=== PATIENT | male | born 1955 | race African-American/Black ===

== ENCOUNTER → 2016-09-03 | Day surgery (SDC) | payer OTHER ==
[~2016-09-03] VITALS: Ht 180.3 cm; Wt 83.8 kg
[~2016-09-03] MED LIST: BACITRACIN TOP OINT 15 GM TUBE ONE; CHLORHEXIDINE GLUCONATE 2 % 1 PACK (2 CLOTHS) TOPICAL PRN; DO NOT ADM ANY ANTICOAGULANT DRUGS PRN; FAMOTIDINE 20 MG/2 ML VIAL ONE; HYDROmorphone HCL PF 1 MG/ML VIAL IV PRN; INSULIN HUMAN REGULAR 1,000 UNITS/10 ML VIAL SQ PRN; LACTATED RINGER'S 1000 ML INJ 500 ML IV ONE; LACTATED RINGER'S 1000 ML IV PRN; LIDOCAINE HCL 2% 50 ML VIAL INFIL ONE; METOPROLOL TARTRATE 25 MG TAB PO PRN; MIDAZOLAM HCL 2 MG/2 ML VIAL ONE; ONDANSETRON HCL 4 MG/2 ML VIAL IV PUSH ONE; ONDANSETRON HCL 4 MG/2 ML VIAL IV PUSH PRN; POVIDONE IODINE 5% (ANTISEPSIS KIT) 4 APPLICATIONS EACH NARE PRN; PROPOFOL 200 MG/20 ML AMP IV ONE; SODIUM CHLORID 0.9% 500 ML IV PRN; TRIAMCINOLONE ACETONIDE 40 MG/ML VIAL I-ARTICULR ONE; TRIAMCINOLONE ACETONIDE 40 MG/ML VIAL ONE; ceFAZolin 2 GM PREMIX 50 ML IV SCH
[2016-09-03 07:08] VITALS: BP 154/84; PULSE 68; RESP 16; TEMP 98; O2SAT 99
[2016-09-03 10:31] VITALS: BP 160/97; PULSE 62; TEMP 96.3; O2SAT 99
[2016-09-03 10:34] VITALS: RESP 18
--- NOTE | 2016-09-03 13:36 | EKG ---
Date Performed: 09/03/2016 Time Performed: 07:33:29 PTAGE: 61 years EKG: SINUS BRADYCARDIA BORDERLINE ECG Compared to prior tracing no significant change PREVIOUS TRACING : 10/05/2012 22.58 DOCTOR: Eugenio Delacruz Interpretating Date/Time 09/03/2016 13:32:18
--- NOTE | 2016-09-03 20:33 | MP ---
cc: RAYMUNDO RAZA DATE OF SURGERY 09/03/2016 PREOPERATIVE DIAGNOSIS 1. Right carpal tunnel syndrome. 2. Arthritis right wrist POSTOPERATIVE DIAGNOSIS 1. Right carpal tunnel syndrome. 2. Arthritis right wrist PROCEDURE 1. Right open carpal tunnel release. 2. Corticosteroid injection, right wrist. SURGEON Dr. Jesica Raza ANESTHESIA General and local TOURNIQUET TIME 14 minutes at 250 mmHg INDICATIONS FOR PROCEDURE Josh Saleh is a pleasant 61-year-old left-hand dominant male who works in [employer] at [employer]. He reported worsening paresthesias in the median nerve distribution which was confirmed on EMG nerve conduction study to be consistent with carpal tunnel syndrome as well as cubital tunnel syndrome. The patient declined surgical intervention for the cubital tunnel and wishes to proceed with right carpal tunnel release. X-rays confirmed scapholunate widening with arthritis between the scaphoid and radius. He elected to proceed with corticosteroid injection and did not want to proceed with surgical intervention for the arthritis at this time. Risks were explained but not limited to wound complications, infection, persistent paresthesias, persistent pain, need for additional surgeries and he elected to proceed. DESCRIPTION OF PROCEDURE The patient was identified in the preoperative holding area and the correct extremity was marked. The patient was taken to the operating room where anesthesia was induced. Right upper extremities was prepped, draped in normal sterile fashion. Tourniquet was inflated to 250 mmHg for 14 minutes. A longitudinal incision was made in line with the radial border of the ring finger. Palmar fascia was identified, incised. Transverse carpal ligament was identified and incised. There was a very significant compression distally on the median nerve. Care was taken to protect the median nerve, palmar arch, ulnar nerve and ulnar artery. Tourniquet was released. Hemostasis was obtained. 5 mL of 2% lidocaine without epinephrine was used to perform local anesthesia over the carpal tunnel and a mixture of 1 mL of 2% lidocaine without epinephrine and 1 mL of Kenalog was injected into the 3-4 portal on the right wrist without complication. The patient was placed into a soft dressing and awaken from anesthesia without any complications. I will see him in 2 weeks for suture removal. He was given a prescription for antibiotics and pain medication. He should be off work until that time. MD DONNA Butterfield/ /9:12 AM /8:29 PM MTDVeronika
== END | disposition home or self-care (01) ==
LOC: HSDC 06:10
PROVIDERS: ATTEND Orthopaedic Surgery
DX: G56.01 Carpal tunnel syndrome, right upper limb (principal); M19.031 Primary osteoarthritis, right wrist; Z01.810 Encounter for preprocedural cardiovascular examination; G56.21 Lesion of ulnar nerve, right upper limb
CPT/HCPCS: 01810; 20605; 64721; 93005; J0690; J2250; J2405; J3301; J7120

== ENCOUNTER 2016-09-20 18:49 | Emergency (ER) | payer OTHER ==
[~2016-09-20] VITALS: Ht 180.3 cm; Wt 86.7 kg
[2016-09-20 19:15] VITALS: BP 161/94; PULSE 73; RESP 16; TEMP 98.1; O2SAT 98
--- NOTE | 2016-09-20 20:54 | PD ---
HPI Chief Complaint: Eye Problems/Injury Time Seen by Provider: 20:47 Travel History International Travel<30 days: No Contact w/Intl Traveler<30days: No Traveled to known affect area: No History of Present Illness HPI 61-year-old male presents to the emergency department by private transportation for complaint of intermittent floaters that have worsened over the past 3 days. Patient states intermittently he'll notice a silvery type change in his vision that floats across his visual field to the midline. Patient is unable to determine if it is coming from the right eye or the left eye. Patient is not experiencing any loss of vision or eye shade coming down over his eyes to obscure his vision or any tunnel vision. Patient also denies any double vision. Patient has not had any sudden onset worst ever headache. Patient did have a mild headache approximately 4 days ago that resolved with one dose of [id number] headache medication. Patient has had no confusion no loss of vision no change in speech no facial droop no neck pain no chest pain no palpitations no sweats no shortness of breath no nausea no vomiting no referred neck jaw back shoulder arm pain no upper extremity or lower extremity numbness tingling or weakness no ataxia of gait also denies any injury or fall. Patient has had no eye pain no drainage from his eyes no injection no swelling. Patient 's had no fever or chills. 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 Patient denies any chronic medical conditions such as autoimmune disorder, hypertension , dyslipidemia, tobaccoism, TIA, CVA, or seizure. Patient takes no medications on a daily basis. Patient denies any eye pain. Patient denies any eye injury. Patient reports similar however briefer duration of symptoms approximately six months ago. [facility] Past Medical History Narrative Medical Negative past medical history; tonsillectomy, carpal tunnel repair; no tobacco use or alcohol use; nursing notes reviewed Medical History: Denies Significant Hx Cancer: No Cardiovascular Problems: No Diminished Hearing: No Endocrine: No Genitourinary: No Hepatitis: No Hiatal Hernia: No Immune Disorder: No Musculoskeletal: No (RIGHT WRIST, DDD LUMBAR) Neurologic: No Psychiatric: No Reproductive: No Respiratory: No Immunizations Current: Yes Tetanus Vaccination: < 5 Years Influenza Vaccination: Yes ?: Not Past Surgical History Abdominal Surgery: No AICD: No Body Medical Devices: NONE Cardiac Surgery: No Ear Surgery: No Endocrine Surgery: No Eye Surgery: No Genitourinary Surgery: No Joint Replacement: No Neurologic Surgery: No Oral Surgery: Yes (TONSILLECTOMY) Pacemaker: No Thoracic Surgery: No Tonsillectomy: Yes Other Surgery: Yes (right hand carpal tunnel surgery) Social History Alcohol Use: No Tobacco Use: No Substance Use: No Allergies-Medications (Allergen,Severity, Reaction): Coded Allergies: Latex (Verified Allergy, Severe, Hives, 09/20/16) Uncoded Allergies: POWDERED LATEX GLOVES (Allergy, Mild, 05/28/07) Reported Meds & Prescriptions Reported Meds & Active Scripts Active Norvasc (Amlodipine Besylate) 2.5 Mg Tab 2.5 Mg PO DAILY Review of Systems Except as stated in HPI: all other systems reviewed are Neg General / Constitutional: No: Fever, Chills Eyes: Positive: Other (floaters), No: Diploplia, Blurred Vision, Photophobia, Drainage, Redness, Foreign Body Sensation HENT: Positive: Headaches (moderate times one), No: Vertigo, Lightheadedness, Nosebleed, Neck Stiffness, Neck Pain, Earache Cardiovascular: No: Chest Pain or Discomfort, Palpitations, Diaphoresis, Syncope, Claudication Respiratory: No: Shortness of Breath Gastrointestinal: No: Nausea, Vomiting Genitourinary: No: Dysuria, Flank Pain Musculoskeletal: No: Myalgias, Arthralgias Skin: No Rash Neurologic: Positive: Headache (times one), No: Weakness, Dizziness, Syncope, Focal Abnormalities, Coordination Problem, Ataxia, Change in Mentation, Slurred Speech, Paresthesia, Incontinence, Seizures, Sensory Disturbance Psychiatric: No: Anxiety Endocrine: No: Heat Intolerance Hematologic/Lymphatic: No: Easy Bruising Physical Exam Narrative GENERAL: Well-developed well-nourished male in no acute distress no respiratory distress; GCS 15. SKIN: Warm and dry. HEAD: Atraumatic. Normocephalic. EYES: Pupils equal and round. EOMI. No scleral icterus. No injection or drainage. No fluorescein uptake; no dendrites. No gross Hyphema. No papilledema on funduscopic exam. No obvious retinal detachment on slit lamp exam. ENT: No nasal bleeding or discharge. Mucous membranes pink and moist. NECK: Trachea midline. No JVD. CARDIOVASCULAR: Regular rate and rhythm. RESPIRATORY: No accessory muscle use. Clear to auscultation. Breath sounds equal bilaterally. GASTROINTESTINAL: Abdomen soft, non-tender, nondistended. Hepatic and splenic margins not palpable. MUSCULOSKELETAL: Extremities without clubbing, cyanosis, or edema. No obvious deformities. NEUROLOGICAL: Awake and alert. No obvious cranial nerve deficits. No visual field loss. Motor grossly within normal limits. Five out of 5 muscle strength in the arms and legs. No pronator drift. No limb ataxia. Sensory exam intact. Normal speech. PSYCHIATRIC: Appropriate mood and affect; insight and judgment normal. Data Data Last Documented VS Vital Signs Date Time Temp Pulse Resp B/P Pulse Ox O2 Delivery O2 Flow Rate FiO2 09/20/16 22:01 70 18 98 09/20/16 21:28 160/91 Room Air 09/20/16 19:[address] Brain W/O Iv Contrast(Rout) (09/20/16 ) [facility] Medical Decision Making Medical Screen Exam Complete: Yes Emergency Medical Condition: Yes Medical Record Reviewed: Yes Interpretation(s) Vital Signs Date Time Temp Pulse Resp B/P Pulse Ox O2 Delivery O2 Flow Rate FiO2 09/20/16 21:28 65 18 160/91 99 Room Air 09/20/16 19:15 98.1 73 16 161/[address] 09/20/16 0000 Signed Impressions: Service Date/Time: Tuesday, September 20, 2016 21:22 - CONCLUSION: Normal examination. Nicola Langley MD Differential Diagnosis Visual disturbance, floater, retinal detachment, amaurosis fugax, TIA, HTN, temporal arteritis Narrative Course Physical exam performed and no identified source of symptoms although clinically appears to be consistent with partial retinal detachment; imaging study reveals no acute abnormality and patient has no focal neurologic deficit. Patient is identified to have mild hypertension and is encouraged to start blood pressure medication as prescribed as well as daily low-dose aspirin. Patient's case has been discussed with on-call ophthalmology with plan for outpatient follow-up times one day. Patient is encouraged to follow-up with his primary care provider as well. Patient otherwise stable for outpatient management. Physician Communication Physician Communication discussed with Dr Johnston --1 day follow up in the office Diagnosis Primary Impression: Floaters in visual field Qualified Code: H43.399 - Floaters in visual field, unspecified laterality Additional Impressions: Retinal detachment Qualified Code: H33.20 - Retinal detachment, unspecified laterality HTN (hypertension) Qualified Code: I10 - Hypertension, unspecified type Referrals: Gabriella Johnston MD 1 day Additional Instructions: Follow-up with senior business architect times one day, Dr Conner Johnston return to the emergency department for any concerns or change in condition Follow-up with primary care provider this week Monitor blood pressure daily Take blood pressure Medication as prescribed hold for blood pressure less than 110/65 Med/Other Pt SpecificInfo: Prescription(s) given Scripts Amlodipine (Norvasc)2.5 Mg Tab2.5 Mg PO DAILY #30 TAB Ref 0 Prov:Delma Smith MD 09/20/16 Disposition: 01 DISCHARGE HOME Condition: Stable Delma Smith MD Sep 20, 2016 20:54
[2016-09-20 21:28] VITALS: BP 160/91; PULSE 65; RESP 18; O2SAT 99
--- NOTE | 2016-09-20 21:50 | RADRPT ---
EXAM DATE/TIME: 09/20/2016 21:22 [facility] COMPARISON: No previous studies available for comparison. INDICATIONS : Cephalgia. Floaters. RADIATION DOSE: 59.20 CTDIvol (mGy) MEDICAL HISTORY : None SURGICAL HISTORY : None. ENCOUNTER: Initial ACUITY: 1 week PAIN SCALE: 0/10 LOCATION: Bilateral cranial TECHNIQUE: Multiple contiguous axial images were obtained of the head. Using automated exposure control and adj ustment of the mA and/or kV according to patient size, radiation dose was kept as low as reasonably a chievable to obtain optimal diagnostic quality images. DICOM format image data is available electro nically for review and comparison. FINDINGS: CEREBRUM: The ventricles are normal for age. No evidence of midline shift, mass lesion, hemorrhage or acute in farction. No extra-axial fluid collections are seen. POSTERIOR FOSSA: The cerebellum and brainstem are intact. The 4th ventricle is midline. The cerebellopontine angle i s unremarkable. EXTRACRANIAL: The visualized portion of the orbits is intact. SKULL: The calvaria is intact. No evidence of skull fracture. CONCLUSION: Normal examination. Nicola Langley MD on September 20, 2016 at 21:49 Board Certified Radiologist. This report was verified electronically.
[2016-09-20] MEDS ORDERED: NORV2.5T PO (21:59)
== END 2016-09-20 22:12 | disposition home or self-care (01) ==
LOC: PHED 18:49
DX: H43.399 Other vitreous opacities, unspecified eye (principal); H33.20 Serous retinal detachment, unspecified eye; I10 Essential (primary) hypertension; R51 Headache
CPT/HCPCS: 70450

== ENCOUNTER 2017-01-19 23:33 | Emergency (ER) | payer OTHER ==
[~2017-01-19] VITALS: Ht 180.3 cm; Wt 84.2 kg
[~2017-01-19 23:33] MED LIST changes: -BACITRACIN TOP OINT 15 GM TUBE ONE; -CHLORHEXIDINE GLUCONATE 2 % 1 PACK (2 CLOTHS) TOPICAL PRN; -DO NOT ADM ANY ANTICOAGULANT DRUGS PRN; -FAMOTIDINE 20 MG/2 ML VIAL ONE; -HYDROmorphone HCL PF 1 MG/ML VIAL IV PRN; -INSULIN HUMAN REGULAR 1,000 UNITS/10 ML VIAL SQ PRN; -LACTATED RINGER'S 1000 ML INJ 500 ML IV ONE; -LACTATED RINGER'S 1000 ML IV PRN; -LIDOCAINE HCL 2% 50 ML VIAL INFIL ONE; -METOPROLOL TARTRATE 25 MG TAB PO PRN; -MIDAZOLAM HCL 2 MG/2 ML VIAL ONE; +NORV2.5T PO; -ONDANSETRON HCL 4 MG/2 ML VIAL IV PUSH ONE; -ONDANSETRON HCL 4 MG/2 ML VIAL IV PUSH PRN; -POVIDONE IODINE 5% (ANTISEPSIS KIT) 4 APPLICATIONS EACH NARE PRN; -PROPOFOL 200 MG/20 ML AMP IV ONE; -SODIUM CHLORID 0.9% 500 ML IV PRN; -TRIAMCINOLONE ACETONIDE 40 MG/ML VIAL I-ARTICULR ONE; -TRIAMCINOLONE ACETONIDE 40 MG/ML VIAL ONE; -ceFAZolin 2 GM PREMIX 50 ML IV SCH
[2017-01-19 23:34] VITALS: BP 135/74; PULSE 90; RESP 18; TEMP 97.6; O2SAT 97
--- NOTE | 2017-01-20 00:59 | PD ---
HPI Chief Complaint: Back/ Neck Pain or Injury Time Seen by Provider: 00:44 Travel History International Travel<30 days: No Contact w/Intl Traveler<30days: No Traveled to known affect area: No History of Present Illness HPI The patient is a 61-year-old male that complains of back pain in the paraspinous muscles to the right of the mid thoracic area for 2 months. He also complains of right elbow/forearm pain in the last week. He states he picked something up with his right arm. Has been painful since. He denies any trauma to either area. There is no radiation of pain from the neck. PFSH Past Medical History Cancer: No Cardiovascular Problems: No Diminished Hearing: No Endocrine: No Genitourinary: No Hepatitis: No Hiatal Hernia: No Immune Disorder: No Neurologic: No Psychiatric: No Reproductive: No Respiratory: No Immunizations Current: Yes Tetanus Vaccination: < 5 Years Influenza Vaccination: Yes Past Surgical History Abdominal Surgery: No AICD: No Body Medical Devices: NONE Cardiac Surgery: No Ear Surgery: No Endocrine Surgery: No Eye Surgery: No Genitourinary Surgery: No Joint Replacement: No Neurologic Surgery: No Oral Surgery: Yes (TONSILLECTOMY) Pacemaker: No Thoracic Surgery: No Tonsillectomy: Yes Other Surgery: Yes (right hand carpal tunnel surgery) Social History Alcohol Use: No Tobacco Use: No Substance Use: No Allergies-Medications (Allergen,Severity, Reaction): Coded Allergies: latex (Unverified Allergy, Severe, Hives, 01/19/17) Uncoded Allergies: POWDERED LATEX GLOVES (Allergy, Mild, 05/28/07) Reported Meds & Prescriptions Reported Meds & Active Scripts Active Flexeril (Cyclobenzaprine HCl) 10 Mg Tab 10 Mg PO TID Ibuprofen 800 Mg Tab 800 Mg PO TID Review of Systems Except as stated in HPI: all other systems reviewed are Neg Physical Exam Narrative GENERAL: The patient is alert, oriented 3 and slight apparent distress with the right elbow pain and right mid thoracic muscle pain. His vital signs show temperature 97.6 but otherwise normal. SKIN: Focused skin assessment warm/dry. HEAD: Atraumatic. Normocephalic. EYES: Pupils equal and round. No scleral icterus. No injection or drainage. ENT: No nasal bleeding or discharge. Mucous membranes pink and moist. NECK: Trachea midline. No JVD. CARDIOVASCULAR: Regular rate and rhythm. No murmur appreciated. RESPIRATORY: No accessory muscle use. Clear to auscultation. Breath sounds equal bilaterally. GASTROINTESTINAL: Abdomen soft, non-tender, nondistended. Hepatic and splenic margins not palpable. MUSCULOSKELETAL: No obvious deformities. No clubbing. No cyanosis. No edema. There is tenderness to the right of the thoracic spine over the paraspinous muscles from T3 to T7. A slight amount of spasm is present. No bony deformity is present. There is tenderness over the elbow at the lateral epicondyle. I can completely reproduce the patient's pain by pressing over the lateral epicondyle at the muscle attachments there. NEUROLOGICAL: Awake and alert. No obvious cranial nerve deficits. Motor grossly within normal limits. Normal speech. PSYCHIATRIC: Appropriate mood and affect; insight and judgment normal. Data Data Last Documented VS Vital Signs Date Time Temp Pulse Resp B/P (MAP) Pulse Ox O2 Delivery O2 Flow Rate FiO2 01/19/17 23:34 97.6 90 18 135/74 (94) 97 Orders Orders Elbow, Complete (4 Vws) (01/20/17 00:52) Ketorolac Inj (Toradol Inj) (01/20/17 01:00) Orphenadrine Inj (Norflex Inj) (01/20/17 01:00) MDM Medical Decision Making Medical Screen Exam Complete: Yes Emergency Medical Condition: Yes Medical Record Reviewed: Yes Interpretation(s) X-rays of the right elbow show no degenerative change or fracture. Differential Diagnosis Thoracic myofascial strain, lateral epicondylitis, transverse process fracture- unlikely, arthritis elbow Narrative Course The patient has thoracic myofascial strain and lateral epicondylitis. You are given prescriptions for Motrin and Flexeril. He needs to rest as much as possible. Using a heating pad he should return on as well as setting an interposed a towel between his skin and the pad. Diagnosis Primary Impression: Thoracic myofascial strain Additional Impression: Lateral epicondylitis of elbow Additional Instructions: As we discussed, a heating pad may be useful for your back. Turned on its lowest setting an interposed a towel between your skin and the back. He does useful but hot does not help anymore and may put you at risk for valadez. As we discussed, if these simple steps do not work this can be locally injected at the elbow. Med/Other Pt SpecificInfo: Prescription(s) given Scripts Cyclobenzaprine (Flexeril) 10 Mg Tab 10 MG PO TID for Muscle Spasm, #30 TAB 0 Refills Prov: Magen Enamorado MD 01/20/17 Ibuprofen (Ibuprofen) 800 Mg Tab 800 MG PO TID, #30 TAB 0 Refills Prov: Magen Enamorado MD 01/20/17 Disposition: 01 DISCHARGE HOME Condition: Stable Magen Enamorado MD Jan 20, 2017 00:59
[2017-01-20] MEDS ORDERED: KETOROLAC TROMETHAMINE 60 MG/2 ML (IM) VIAL IM ONE (01:00)
[2017-01-20] MEDS ORDERED: ORPHENADRINE INJ 60 MG/2 ML AMP IM ONE (01:00)
[2017-01-20] MEDS ORDERED: IBUP1TAB7 PO (01:01)
[2017-01-20] MEDS ORDERED: CYCL10TA PO (01:01)
--- NOTE | 2017-01-20 01:25 | RADRPT ---
EXAM DATE/TIME: 01/20/2017 01:06 [facility] COMPARISON: No previous studies available for comparison. INDICATIONS : Right elbow pain x 1 week. MEDICAL HISTORY : None. SURGICAL HISTORY : None. ENCOUNTER: Initial ACUITY: 1 day PAIN SCORE: 8/10 LOCATION: Right Elbow FINDINGS: No fracture, subluxation or joint effusion of the right elbow. Posterior soft tissues appear mildly i ndurated suggesting possible olecranon bursitis. Incidentally seen chronic enthesophyte of the tricep s insertion. CONCLUSION: No acute bony abnormality. Posterior soft tissues are mildly swollen. No radiopaque foreign body. Harrison Mills MD on January 20, 2017 at 1:22 Board Certified Radiologist. This report was verified electronically.
[2017-01-20 01:34] VITALS: BP 132/70; PULSE 78; RESP 18; O2SAT 97
== END 2017-01-20 01:35 | disposition home or self-care (01) ==
LOC: PHED 23:33
DX: S29.012A Strain of muscle and tendon of back wall of thorax, initial encounter (principal); M77.11 Lateral epicondylitis, right elbow; X50.9XXA Other and unspecified overexertion or strenuous movements or postures, initial encounter
CPT/HCPCS: 73080; 96372; 99284; J1885; J2360

== ENCOUNTER → 2017-06-21 | Outpatient (CLI) | payer SELFPAY ==
[~2017-06-21] MED LIST changes: +CYCL10TA PO; +IBUP1TAB7 PO; -NORV2.5T PO
[2017-06-21 15:54] LABS: AUTOMATED NEUTROPHIL # 2.2 TH/MM3 (1.8-7.7); BASOPHIL % 0.5 % (0.0-2.0); EOSINOPHIL # 0.2 TH/MM3 (0-0.4); EOSINOPHIL % 3.8 % (0.0-4.0); HEMATOCRIT 41.5 % (39.0-51.0); HEMOGLOBIN 13.3 GM/DL (13.0-17.0); LYMPH % 27.4 % (9.0-44.0); LYMPHOCYTE # 1.1 TH/MM3 (1.0-4.8); MEAN CELL VOLUME 89.2 FL (80.0-100.0); MEAN CORPUSCULAR HEMOGLOBIN 28.6 PG (27.0-34.0); MEAN PLATELET VOLUME 6.9 FL (7.0-11.0); MONO % 13.3 % (0.0-8.0); MONOCYTE # 0.5 TH/MM3 (0-0.9); PLATELET COUNT 188 TH/MM3 (150-450); RED BLOOD COUNT 4.66 MIL/MM3 (4.50-5.90); RED CELL DISTRIBUTION WIDTH 14.5 % (11.6-17.2); WHITE BLOOD COUNT 4.1 TH/MM3 (4.0-11.0)
[2017-06-21 16:43] LABS: ALBUMIN 3.5 GM/DL (3.4-5.0); AST (GOT) 35 U/L (15-37); BICARBONATE 29.2 MEQ/L (21.0-32.0); BLOOD UREA NITROGEN 14 MG/DL (7-18); CALCIUM 8.8 MG/DL (8.5-10.1); CHLORIDE 108 MEQ/L (98-107); GLUCOSE,FASTING 84 MG/DL (74-99); MAGNESIUM 1.9 MG/DL (1.5-2.5); SODIUM (NA) 143 MEQ/L (136-145)
[2017-06-21 16:51] LABS: ALKALINE PHOSPHATASE 42 U/L (45-117); ALT (GPT) 24 U/L (12-78); CHOLESTEROL 162 MG/DL (120-200); CHOLESTEROL/ HDL RATIO 4.08 RATIO; CREATININE 1.14 MG/DL (0.60-1.30); FREE T4 0.89 NG/DL (0.76-1.46); GLOMERULAR FILTRATION RATE 79 ML/MIN (>89); HDL CHOLESTEROL 39.7 MG/DL (40.0-60.0); LDL CHOLESTEROL 85 MG/DL (0-99); TOTAL BILIRUBIN ADULT 0.5 MG/DL (0.2-1.0); TOTAL PROTEIN 7.6 GM/DL (6.4-8.2); TRIGLYCERIDES 186 MG/DL (42-150)
== END ==
LOC: CLAB 13:50
PROVIDERS: ATTEND Family Medicine
DX: R20.0 Anesthesia of skin (principal); R26.9 Unspecified abnormalities of gait and mobility
CPT/HCPCS: 36415; 80053; 80061; 82607; 83735; 84439; 84443; 85025

== ENCOUNTER 2017-10-30 12:29 | Inpatient (IN) ==
[2017-10-30] MEDS ORDERED: Sod Chloride 0.9% Inj 1,000 ML IV.SIG SCH (14:00)
[2017-10-30 14:22] LABS: Eos # (Auto) 0.1 th/mm3 (0.0-0.4); Eos % (Auto) 2.8 % (0.0-4.0); Hematocrit 43.7 % (39.0-51.0); Hemoglobin 14.3 gm/dL (13.0-17.0); Lymph % (Auto) 20.5 % (9.0-44.0); Mean Corpuscular HGB Conc 32.8 % (32.0-36.0); Mean Corpuscular Hemoglobin 28.9 pg (27.0-34.0); Mean Corpuscular Volume 88.3 fL (80.0-100.0); Mean Platelet Volume 6.9 fL (7.0-11.0); Mono # (Auto) 0.4 th/mm3 (0.0-0.9); Mono % (Auto) 8.6 % (0.0-8.0); Neut # (Auto) 3.4 th/mm3 (1.8-7.7); Neut % (Auto) 67.1 % (16.0-70.0); Platelet Count 203 th/mm3 (150-450); Red Blood Count 4.95 mil/mm3 (4.50-5.90); Red Cell Distribution Width 13.7 % (11.6-17.2)
--- NOTE | 2017-10-30 14:34 | ED ---
HPI General Chief Complaint: Syncope Stated Complaint: Blood Pressure Concern Time Seen by Provider: 10/30/17 13:42 Source: patient Mode of arrival: ambulatory Limitations: no limitations History of Present Illness HPI Narrative: 62-year-old male the presents to the ED for evaluation of dizziness with standing. Per patient he has had this for the past month but is progressively getting worse. He has been here about 3-4 times now for the same. Per patient he has had multiple workups in the past for this. Patient was here on 17 October for similar and was found to be orthostatic hypotensive. The time he was told to be believed to be related to his HCTZ. This was discontinued on per patient is not taking this anymore. Denies any urinary or bowel movement issues. Denies any fevers chills or sweats. No chest pain or shortness of breath. Per patient today he had an episode while going [place]. Per patient she ate and he got groomed and just waiting for a ride to get to [employer] he started feeling somewhat dizzy. When he goes to [facility] she lasted 5 minutes and he started feeling very weak and like he was in a pass out. Per patient he has an appointment cardioversion on Tuesday. He denies any chest pain. No other symptoms. He denies actually syncopized in or losing consciousness. No other medical issues at this time. Related Data Home Medications Medication Instructions Recorded Confirmed ranitidine HCl [Zantac] 150 mg PO DAILY 10/23/17 Allergies Allergy/AdvReac Type Severity Reaction Status Date / Time latex Allergy Severe Hives Verified 09/23/17 14:29 POWDERED LATEX GLOVES Allergy Mild Hives Uncoded 09/23/17 14:28 Review of Systems ROS: all other systems reviewed are negative [facility] Medical History Medical History GERD (gastroesophageal reflux disease) (Acute) Surgical History Surgical History History of carpal tunnel surgery of right wrist (Acute) History of tonsillectomy (Acute) Social History Social History Substance History: No History of Abuse Second Hand Smoke Exposure: No Smoking Status: Never smoker Tobacco Type: Cigarettes How Often Do You Have a Drink Containing Alcohol: Never Recent Travel in [facility] within the Last 8 Weeks: No Recent Out of Country Travel within the Last 8 Weeks: No Immunization History Tetanus Immunization: Unsure Hx Influenza Vaccine This Season: Yes Exam Narrative Exam Narrative: GENERAL: Well appearing SKIN: Focused skin assessment warm/dry. HEAD: Atraumatic. Normocephalic. EYES: Pupils equal and round. No scleral icterus. No injection or drainage. ENT: No nasal bleeding or discharge. Mucous membranes pink and moist. Tongue is midline. No uvula deviation. NECK: Trachea midline. No JVD. CARDIOVASCULAR: Regular rate and rhythm. No murmur appreciated. RESPIRATORY: No accessory muscle use. Clear to auscultation. Breath sounds equal bilaterally. GASTROINTESTINAL: Abdomen soft, non-tender, nondistended. Hepatic and splenic margins not palpable. MUSCULOSKELETAL: No obvious deformities. No clubbing. No cyanosis. No edema. Full range of motion of the upper and lower extremities bilaterally. 2+ pulses bilaterally. NEUROLOGICAL: Awake and alert. No obvious cranial nerve deficits. Motor grossly within normal limits. Normal speech. PSYCHIATRIC: Appropriate mood and affect; insight and judgment normal. Course Initial Documented Vital Signs Temperature 98.5 F 10/30/17 13:08 Pulse Rate 81 10/30/17 13:08 Respiratory Rate 19 10/30/17 13:08 Blood Pressure 133/90 10/30/17 13:08 Pulse Oximetry 97 10/30/17 13:08 Last Documented Vital Signs Temperature 98.5 F 10/30/17 13:08 Pulse Rate 80 10/30/17 14:06 Respiratory Rate 19 10/30/17 13:08 Blood Pressure 133/90 10/30/17 13:08 Pulse Oximetry 98 10/30/17 14:06 Medical Decision Making [facility] Narrative Medical decision making narrative: 62-year-old male the presents to the ED for evaluation of possible syncope. Patient was properly examined and was found to have signs and symptoms of unclear etiology. Labs ordered. Given IV fluids. Initial labs were essentially unremarkable when I went to discuss the results with the patient he started talking to me about some right leg swelling and pain. Per patient has had this for some time but his not really able to tell me how long he has had this. Because of the patient's symptoms I do recommend doing an ultrasound. Ultrasound was positive for significant DVT on the right leg. PE study was done and was positive for PE as well. Likely this is the cause of the symptoms of the patient. At this time patient was reassured and a recommend admission for IV heparin. Patient agrees to proceed. Case was discussed with the residents agreed to admission. Medical Screen Exam Complete: Yes Emergency Medical Condition: Yes Differential Diagnosis Differential Diagnosis: Syncope versus presyncope versus orthostatic hypotension versus dehydration versus a typical chest pain versus [facility] Medical Records Medical records reviewed: Yes I reviewed the patient's medical records. Lab Data Lab results reviewed: Yes I reviewed the patient's lab results. Result diagrams: 10/30/17 14:00 10/30/17 14:00 Lab Results 10/30/17 10/30/17 10/30/17 Range/Units 14:00 14:00 14:00 WBC 5.0 (4.0-11.0) th/mm3 RBC 4.95 (4.50-5.90) mil/mm3 Hgb 14.3 (13.0-17.0) gm/dL Hct 43.7 (39.0-51.0) % MCV 88.3 (80.0-100.0) fL MCH 28.9 (27.0-34.0) pg MCHC 32.8 (32.0-36.0) % RDW 13.7 (11.6-17.2) % Plt Count 203 (150-450) th/mm3 MPV 6.9 L (7.0-11.0) fL Neut % (Auto) 67.1 (16.0-70.0) % Lymph % (Auto) 20.5 (9.0-44.0) % [place] % (Auto) 8.6 H (0.0-8.0) % Eos % (Auto) 2.8 (0.0-4.0) % Baso % (Auto) 1.0 (0.0-2.0) % Neut # (Auto) 3.4 (1.8-7.7) th/mm3 Lymph # (Auto) 1.0 (1.0-4.8) th/mm3 [place] # (Auto) 0.4 (0.0-0.9) th/mm3 Eos # (Auto) 0.1 (0.0-0.4) th/mm3 Baso # (Auto) 0.0 (0.0-0.2) th/mm3 WBC Differential . Differential Comment Auto diff final PT (9.8-11.6) sec INR Ratio APTT (24.3-30.1) sec Sodium 140 (136-145) meq/L Potassium 4.2 (3.5-5.1) meq/L Chloride 103 (98-107) meq/L Carbon Dioxide 29.6 (21.0-32.0) meq/L Anion Gap 7 (5-15) meq/L BUN 11 (7-18) mg/dL Creatinine 1.28 (0.60-1.30) mg/dL Estimated GFR 69 L (>89) mL/min Random Glucose 90 (74-106) mg/dL Calcium 9.4 (8.5-10.1) mg/dL Troponin I Less than 0.02 L (0.02-0.05) ng/mL TSH 1.700 (0.358-3.740) uIU/mL 10/30/17 Range/Units 14:00 WBC (4.0-11.0) th/mm3 RBC (4.50-5.90) mil/mm3 Hgb (13.0-17.0) gm/dL Hct (39.0-51.0) % MCV (80.0-100.0) fL MCH (27.0-34.0) pg MCHC (32.0-36.0) % RDW (11.6-17.2) % Plt Count (150-450) th/mm3 MPV (7.0-11.0) fL Neut % (Auto) (16.0-70.0) % Lymph % (Auto) (9.0-44.0) % [place] % (Auto) (0.0-8.0) % Eos % (Auto) (0.0-4.0) % Baso % (Auto) (0.0-2.0) % Neut # (Auto) (1.8-7.7) th/mm3 Lymph # (Auto) (1.0-4.8) th/mm3 [place] # (Auto) (0.0-0.9) th/mm3 Eos # (Auto) (0.0-0.4) th/mm3 Baso # (Auto) (0.0-0.2) th/mm3 WBC Differential Differential Comment PT 9.8 (9.8-11.6) sec INR 1.0 Ratio APTT 22.8 L (24.3-30.1) sec Sodium (136-145) meq/L Potassium (3.5-5.1) meq/L Chloride (98-107) meq/L Carbon Dioxide (21.0-32.0) meq/L Anion Gap (5-15) meq/L BUN (7-18) mg/dL Creatinine (0.60-1.30) mg/dL Estimated GFR (>89) mL/min Random Glucose (74-106) mg/dL Calcium (8.5-10.1) mg/dL Troponin I (0.02-0.05) ng/mL TSH (0.358-3.740) uIU/mL Imaging Data Attestation: I personally reviewed and interpreted this imaging study as follows : Radiologist's impression: Venous Doppler Study 10/30/17 16:03 CONCLUSION: 1. Extensive DVT. Chest CTA 10/30/17 17:05 CONCLUSION: 1. Pulmonary embolus right lower lobe. ECG Data Attestation: I personally reviewed and interpreted this ECG as follows: Interpretation: EKG shows sinus rhythm with a heart rate of 80 with no sign of ST elevation or ischemia. Read by me and attending. Discharge Plan Discharge Disposition Patient Disposition: 30 Still Patient Discharge Details Diagnosis: Acute pulmonary embolism, DVT (deep venous thrombosis), Dizziness Physicians Team ED Provider: Barney Moctezuma ED Midlevel Provider: Taco Valenzuela Primary Care Provider: Francis Ivory Attending Provider: Dianne Chavarria Discharge Interventions Interventions: Vital Signs Last Done: 10/30/17 13:08 Status ED Status: Admitted Patient
[2017-10-30 14:45] LABS: Anion Gap 7 meq/L (5-15); Blood Urea Nitrogen 11 mg/dL (7-18); Calcium 9.4 mg/dL (8.5-10.1); Carbon Dioxide 29.6 meq/L (21.0-32.0); Chloride 103 meq/L (98-107); Glomerular Filtration Rate 69 mL/min (>89); Glucose,Random 90 mg/dL (74-106); Potassium 4.2 meq/L (3.5-5.1); Sodium 140 meq/L (136-145)
--- NOTE | 2017-10-30 17:21 | US ---
EXAM DATE: 10/30/2017 5:13 PM EDT AGE/SEX: 62 years / Male INDICATIONS: Right leg pain and swelling. CLINICAL DATA: This is the patient's initial encounter. Patient reports that signs and symptoms have been present for 4 - 6 months and indicates a pain score of 3/10. MEDICAL/SURGICAL HISTORY: Gastroesophageal reflux disease. Carpal tunnel syndrome. Tonsillecto my. COMPARISON: No prior exams available for comparison. TECHNIQUE: Venous ultrasound of both lower extremities was performed from the inguinal ligament to t he proximal calf. Real-time, color Doppler and spectral tracing, compression and augmentation techni ques were used. FINDINGS: There is deep venous thrombosis which extends from the common femoral vein and parts of th e visualized external iliac vein into the superficial femoral vein and popliteal vein and below the k nee vessels. CONCLUSION: 1. Extensive DVT. Electronically signed by: Brandon Vitale MD 10/30/2017 5:19 PM EDT
[2017-10-30 17:54] LABS: Activated Partial Thrombo Time 22.8 sec (24.3-30.1); Prothrombin Time 9.8 sec (9.8-11.6)
--- NOTE | 2017-10-30 18:00 | CT ---
EXAM DATE: 10/30/2017 5:55 PM EDT AGE/SEX: 62 years / Male INDICATIONS: Blood clot in right leg. Evaluate for emboli. CLINICAL DATA: This is the patient's initial encounter. Patient reports that signs and symptoms have been present for 1 day and indicates a pain score of 0/10. MEDICAL/SURGICAL HISTORY: Gastroesophageal reflux disease. Tonsillectomy. RADIATION DOSE: 16.60 CTDI (mGy) COMPARISON: No prior exams available for comparison. TECHNIQUE: Volumetric scanning was performed using a multi-row detector CT scanner during bolus infu meme of 75 ml Omnipaque 350 (iohexol) nonionic water-soluble contrast as a single exam dose. The rick a was post processed with a variety of visualization algorithms including full volume maximum intensi ty projection and sliding thin slab reformation. Using automated exposure control and adjustment of the mA and/or kV according to patient size, radiation dose was kept as low as reasonably achievable t o obtain optimal diagnostic quality images. DICOM format image data is available electronically for review and comparison. FINDINGS: There is pulmonary embolus in right lower lobe pulmonary arteries. Lungs are clear. There is no pleur al effusion. CONCLUSION: 1. Pulmonary embolus right lower lobe. Electronically signed by: Brandon Vitale MD 10/30/2017 5:59 PM EDT
[2017-10-30] MEDS ORDERED: Heparin 10,000 UNITS/10 ML Vial (for IV use) IV.PUSH STA (18:09)
[2017-10-30] MEDS ORDERED: Heparin Drip 25,000 UNIT/250 ML BAG IV.CONT PRN (18:09)
--- NOTE | 2017-10-30 18:46 | P.HPFP ---
History of Present Illness Primary Care Physician: Francis Ivory MD History of Present Illness: This patient is a 62-year-old male with a two-week history of dizziness and weakness who was admitted for PE and DVT. Patient reports that several weeks ago the patient began to have several episodes of weakness particularly while driving that were accompanied by feeling "very hot" and diaphoresis. During the patient's travels from the local area to [place] he reports several episodes of needing to stop due to perceived weakness. During these times he would have to bone char puller, have his car towed home, and call a cab due to his dizziness. Per patient during these episodes he would feel like he was "dying" and experienced intense anxiety and panic, as well as shortness of breath. Throughout this time patient also endorsed a several week history of right lower extremity pain that he described as tightness. The leg pain is nonradiating, sharp, and located on the lateral and medial sides of his lower right extremity. The right lower extremity pain is relieved by standing and worsened by sitting. There were no other associated symptoms. Today's events began when he arrived to [place] this morning, approximately 7 minutes after his arrival patient began to experience weakness and dizziness accompanied by some diaphoresis, at which point a fellow [employer] member gave him a ride to the emergency department. On arrival the patient had a wells score of 4.5 for PE and a 2 for DVT indicating moderate risk for both. 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 He denies any recent airplane travel or extensive car rides other than his drives to [place]. He denies any history of blood or clotting disorders. 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 Does endorse diaphoresis during episodes of dizziness and weakness. Patient has endorsed prior episodes of syncope years ago which resulted in no injury. EYES: No blurred vision or double vision. RESPIRATORY: Endorses shortness of breath during episodes of weakness. HEART: No chest pain or palpitations. GI: Denies any nausea, vomiting or constipation. He denies any abdominal pain. MUSC: He endorses ongoing back pain and reports having to sleep up in a chair as lying flat causes pain. Per patient he has degenerative disc changes in his cervical vertebral discs. NEURO: Denies headaches, but endorses episodes of weakness, dizziness and suffers from right lower extremity neuropathy. Patient denies any loss of motor or sensory function as well as any facial drooping. Patient denies any bleeding or clotting disorders. Patient denies smoking. [facility] - History History Provided By: Patient - Medical History Medical History: Medical History (Last Reviewed 10/30/17 @ 14:33 by FLORES Lan) GERD (gastroesophageal reflux disease) - Surgical History Surgical History: Surgical History (Last Reviewed 10/30/17 @ 14:33 by FLORES Lan) History of carpal tunnel surgery of right wrist (Acute) History of tonsillectomy - Tobacco History Second Hand Smoke Exposure: No Tobacco Use In Past 30 Days: No Smoking Status: Never smoker Tobacco Type: Cigarettes - Alcohol History How Often Do You Have a Drink Containing Alcohol: Never - Substance Use History Substance History: No History of Abuse - Travel History Recent Travel in the [place] Within the Last 8 Weeks: No Recent Travel Out of the Country Within the Last 8 Weeks: No - Immunization History Tetanus Immunization: Unsure Hx Influenza Vaccine This Season: Yes Medications and Allergies Active Medications: Active Medications Sodium Chloride (Ns Inj) 1,000 mls @ 0 mls/hr IV.SIG BOLUS FABIANO Last Infusion: 10/30/17 18:18 Dose: Infused Heparin Sodium/Dextrose (Heparin/D5w 25,000 U/250 Ml) 25,000 unit in 250 mls @ 0 mls/hr IV.CONT TITRATE PRN; Protocol PRN Reason: Per Protocol Last Admin: 10/30/17 18:34 Dose: 1,600 units/hr, 16 mls/hr Allergies Allergy/AdvReac Type Severity Reaction Status Date / Time latex Allergy Severe Hives Verified 09/23/17 14:29 POWDERED LATEX GLOVES Allergy Mild Hives Uncoded 09/23/17 14:28 Home Medications Medication Instructions Recorded Confirmed Type ranitidine HCl [Zantac] 150 mg PO DAILY 10/23/17 History Exam Vital signs: Vital Signs 10/30/17 13:08 10/30/17 14:06 Temperature 98.5 F Pulse Rate 81 80 Respiratory Rate 19 Blood Pressure 133/90 Pulse Oximetry 97 98 Intake & Output 10/29/17 10/30/17 10/30/17 18:59 06:59 18:59 Intake Total 1000 / 1000 Balance 1000 / 1000 Weight 86.183 kg Intake: IV 1000 / 1000 NS Inj 1,000 ML @ Wide Open IV. 1000 / 1000 SIG BOLUS FABIANO Rx#:[id number] Narrative: GENERAL: Well-nourished, well-developed patient. No acute distress. SKIN: Warm and dry. No rash. EYES: No scleral icterus. No injection or drainage. EOMI. HENT: Normocephalic. Atraumatic. CARDIOVASCULAR: Regular rate and rhythm without obvious murmurs, gallops, or rubs. RESPIRATORY: Breath sounds distant and lower lung kelley with decreased aeration. Upper lobes clear to auscultation with no wheezes, crackles, or rubs. No accessory muscle use. CTAB. GASTROINTESTINAL: Abdomen soft, non-tender, nondistended. BS WNL. MUSCULOSKELETAL: No cyanosis or edema. Strength grossly WNL. BACK: Nontender without obvious deformity. No CVA tenderness. NEURO/PSYCH: Afocal. Awake, alert, and oriented x3. Results - Labs Result diagrams: 10/30/17 14:00 10/30/17 14:00 Abnormal lab results 10/30/17 10/30/17 10/30/17 Range/Units 14:00 14:00 14:00 MPV 6.9 L (7.0-11.0) fL [place] % (Auto) 8.6 H (0.0-8.0) % APTT 22.8 L (24.3-30.1) sec Estimated GFR 69 L (>89) mL/min Troponin I Less than 0.02 L (0.02-0.05) ng/mL Short CBC 10/30/17 Range/Units 14:00 WBC 5.0 (4.0-11.0) th/mm3 Hgb 14.3 (13.0-17.0) gm/dL Hct 43.7 (39.0-51.0) % Plt Count 203 (150-450) th/mm3 BMP 10/30/17 14:00 Sodium 140 Potassium 4.2 Chloride 103 Carbon Dioxide 29.6 BUN 11 Creatinine 1.28 Calcium 9.4 Cardiac Enzymes 10/30/17 Range/Units 14:00 Troponin I Less than 0.02 L (0.02-0.05) ng/mL - Imaging Impressions Venous Doppler Study 10/30/17 16:03 CONCLUSION: 1. Extensive DVT. Chest CTA 10/30/17 17:05 CONCLUSION: 1. Pulmonary embolus right lower lobe. Caprini VTE Risk Assessment Caprini VTE Risk Assessment: Moderate/High Risk (score >= 2) VTE Pharmacological Exception Reason: Coagulopathy,INR elevated (DVT and PE) Caprini Risk Assessment Model: Point Value = 1 Point Value = 2 Point Value = 3 Point Value = 5 Age 41-60 Minor surgery BMI > 25 kg/m2 Swollen legs Varicose veins or History of unexplained or recurrent spontaneous Oral contraceptives or hormone replacement Sepsis (< 1 month) Serious lung disease, including pneumonia (< 1 month) Abnormal pulmonary function Acute myocardial infarction Congestive heart failure (< 1 month) History of inflammatory bowel disease Medical patient at bed rest Age 61-74 Arthroscopic surgery Major open surgery (> 45 min) Laparoscopic surgery (> 45 min) Malignancy Confined to bed (> 72 hours) Immobilizing plaster cast Central venous access Age >= 75 History of VTE Family history of VTE Factor V Leiden Prothrombin [id number] Lupus anticoagulant Anticardiolipin antibodies Elevated serum homocysteine Heparin-induced thrombocytopenia Other congenital or acquired thrombophilia Stroke (< 1 month) Elective arthroplasty Hip, pelvis, or leg fracture Acute spinal cord injury (< 1 month) Prophylaxis Regimen: Total Risk Factor Score Risk Level Prophylaxis Regimen 0-1 Low Early ambulation 2 Moderate Order ONE of the following: *Sequential Compression Device (SCD) *Heparin 5000 units SQ BID 3-4 Higher Order ONE of the following medications: *Heparin 5000 units SQ TID *Enoxaparin/Lovenox 40 mg SQ daily (WT < 150 kg, CrCl > 30 mL/min) *Enoxaparin/Lovenox 30 mg SQ daily (WT < 150 kg, CrCl > 10-29 mL/min) *Enoxaparin/Lovenox 30 mg SQ BID (WT < 150 kg, CrCl > 30 mL/min) AND/OR *Sequential Compression Device (SCD) 5 or more Highest Order ONE of the following medications: *Heparin 5000 units SQ TID (Preferred with Epidurals) *Enoxaparin/Lovenox 40 mg SQ daily (WT < 150 kg, CrCl > 30 mL/min) *Enoxaparin/Lovenox 30 mg SQ daily (WT < 150 kg, CrCl > 10-29 mL/min) *Enoxaparin/Lovenox 30 mg SQ BID (WT < 150 kg, CrCl > 30 mL/min) AND *Sequential Compression Device (SCD) Assessment and Plan - Assessment (1) Acute pulmonary embolism Code(s): I26.99 - Other pulmonary embolism without acute cor pulmonale Status : Acute Plan: 62-year-old male admitted for acute pulmonary embolism diagnosed with CTA as well as DVT diagnosed by venous Doppler studies. Patient reports a several week history of lower extremity pain as well as shortness of breath diaphoresis and dizziness. Patient denies any history of bleeding or clotting disorders with himself or his family. Patient also denies being a smoker. He has no history of neoplasms or malignancy. Patient does report an episode of fast heart rate indicating possible A. fib with RVR but is currently normal sinus rhythm. Patient denies any abdominal pain neck and AAA possible but unlikely source of embolism in this setting. Patient has a normal PT and INR but an abnormal APTT at 22.8. Patient to receive echo, ECG, protein C and protein S studies. If coagulation studies are normal consider other thrombophilic diseases such as factor V Leiden. -Continue IV heparin drip -Follow-up with echocardiography -Follow-up with ECG -Follow-up with protein C and S laboratory studies -Follow-up with fibrinogen labs -Monitor on telemetry (2) DVT (deep venous thrombosis) Code(s): I82.409 - Acute embolism and thrombosis of unspecified deep veins of unspecified lower extremity Status: Acute Plan: This patient is admitted for acute lower lobe pulmonary embolism as well as right lower extremity DVT. Patient has no history of venous stasis, extensive or long recent travel, is a non-smoker, and has no history of malignancies or clotting disorders. Patient continues to endorse pain in the medial and lateral aspects of his lower right extremity. PE likely to be an embolus from his DVT. Please see plan for pulmonary embolism above. (3) Weakness Code(s): R53.1 - Weakness Status: Acute Plan: Patient reports a several week history of dizziness and weakness accompanied by diaphoresis, shortness of breath and a one-time episode of fast heart rate without any other associated symptoms. He has experienced one episode of syncope which she says was a year ago which resulted in no bodily injury. He denies any recent loss of consciousness, involuntary incontinence, facial droop , or loss of function. Possible causes of his dizziness may include metabolic and electrolyte disturbances, thyroid hormone disturbances, cardiac origin to include atrial fibrillation with RVR for example, neurogenic in origin, hydration status, or blood glucose levels. Random glucose was within normal limits at 90, patient has no potassium or calcium abnormalities. His initial troponin was in the normal limits less than 0.02. His TSH was within normal limits. Initial ECG showed sinus rhythm with a heart rate of 80, borderline left axis deviation with no ST elevations or depressions. Patient to remain on telemetry to observe any cardiogenic abnormalities. -Monitor on telemetry -Follow-up with echocardiograph (4) Nutrition, metabolism, and development symptoms Code(s): R63.8 - Other symptoms and signs concerning food and fluid intake Status: Acute (1) Acute pulmonary embolism Qualifiers: Pulmonary embolism type: other Acute cor pulmonale presence: without acute cor pulmonale Qualified Code(s): I26.99 - Other pulmonary embolism without acute cor pulmonale (2) DVT (deep venous thrombosis) Qualifiers: DVT location: lower extremity Affected thrombotic vein of extremity: unspecified vein of extremity Chronicity: acute Laterality: right Qualified Code(s): I82.401 - Acute embolism and thrombosis of unspecified deep veins of right lower extremity
[2017-10-30] MEDS ORDERED: Acetaminophen 325 MG Tablet PO PRN (19:28)
[2017-10-30] MEDS ORDERED: Senna/Docusate Sodium 8.6/50 MG Tablet PO PRN (19:28)
[2017-10-30 23:01] LABS: INR 1.2 Ratio; Prothrombin Time 12.1 sec (9.8-11.6)
[2017-10-30 23:29] LABS: Activated Partial Thrombo Time 136.8 sec (24.3-30.1)
[2017-10-31 03:44] LABS: Eos # (Auto) 0.2 th/mm3 (0.0-0.4); Eos % (Auto) 5.6 % (0.0-4.0); Hematocrit 40.1 % (39.0-51.0); Hemoglobin 13.1 gm/dL (13.0-17.0); Lymph # (Auto) 1.1 th/mm3 (1.0-4.8); Lymph % (Auto) 29.7 % (9.0-44.0); Mean Corpuscular HGB Conc 32.6 % (32.0-36.0); Mean Corpuscular Hemoglobin 28.6 pg (27.0-34.0); Mean Corpuscular Volume 87.7 fL (80.0-100.0); Mean Platelet Volume 6.6 fL (7.0-11.0); Mono # (Auto) 0.5 th/mm3 (0.0-0.9); Mono % (Auto) 13.2 % (0.0-8.0); Neut # (Auto) 1.9 th/mm3 (1.8-7.7); Neut % (Auto) 50.5 % (16.0-70.0); Platelet Count 177 th/mm3 (150-450); Red Blood Count 4.58 mil/mm3 (4.50-5.90); Red Cell Distribution Width 13.8 % (11.6-17.2); White Blood Count 3.8 th/mm3 (4.0-11.0)
[2017-10-31 04:08] LABS: Alanine Aminotransferase 15 U/L (12-78); Albumin 3.1 g/dL (3.4-5.0); Anion Gap 9 meq/L (5-15); Blood Urea Nitrogen 11 mg/dL (7-18); Carbon Dioxide 31.2 meq/L (21.0-32.0); Chloride 103 meq/L (98-107); Glucose,Random 108 mg/dL (74-106); Potassium 3.6 meq/L (3.5-5.1); Sodium 143 meq/L (136-145)
[2017-10-31 04:11] LABS: Alkaline Phosphatase 49 U/L (45-117); Aspartate Aminotransferase 9 U/L (15-37); Glomerular Filtration Rate 77 mL/min (>89); Total Protein 7.3 g/dL (6.4-8.2)
[2017-10-31] MEDS: Enoxaparin Inj 80 MG/0.8 ML Syringe SQ SCH ×2 (08:56→20:45)
--- NOTE | 2017-10-31 09:27 | P.HPFP ---
History of Present Illness Primary Care Physician: Francis Ivory MD History of Present Illness: This patient is a 62-year-old male with an approximately two-week history of dizziness and weakness who was admitted for PE and DVT. Patient reports that several weeks ago he began to have several episodes of weakness particularly while driving that were accompanied by feeling "very hot" and diaphoresis. During the patient's travels from the local area to [place] he reports several episodes of needing to stop due to perceived weakness. During these times he would have to hand assembler for puller over, have his car towed home, and call a cab due to his dizziness. Per patient during these episodes he would feel like he was "dying" and experienced intense anxiety and panic, as well as shortness of breath. Throughout this time patient also endorsed a several week history of right lower extremity pain that he described as tightness. The leg pain is nonradiating, sharp, and located on the lateral and medial sides of his lower right extremity. The right lower extremity pain is relieved by standing and worsened by sitting. There were no other associated symptoms. The events that brought him into the hospital this time began when he arrived at [facility] , approximately 7 minutes after his arrival patient began to experience weakness and dizziness accompanied by some diaphoresis, at which point a fellow [facility] member gave him a ride to the emergency department. On arrival the patient had a wells score of 4.5 for PE and a 2 for DVT indicating moderate risk for both. 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 He denies any recent airplane travel or extensive car rides other than his drives to [place]. He denies any history of blood or clotting disorders. This am he was concerned about the floaters in his eyes. He had adequate and normal vision otherwise. He was placed on a heparin drip in the ED. He has had no other complaints overnight. 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 This includes certification that hospital inpatient services are reasonable and necessary and in the case of services not specified as inpatient-only under 42 CFR 419.22(n), that they are appropriately provided as inpatient services in accordance to with the 2-midnight benchmark under 43 CFR 412.3(e) Estimated Total Length of Stay (Days): 3 Plans for Post Hospital Care: Home Review of Systems other (See admission history from yesterday) PMF - History History Provided By: Patient - Medical History Medical History: Medical History (Last Reviewed 10/30/17 @ 14:33 by FLORES Lan) GERD (gastroesophageal reflux disease) - Surgical History Surgical History: Surgical History (Last Reviewed 10/30/17 @ 14:33 by FLORES Lan) History of carpal tunnel surgery of right wrist (Acute) History of tonsillectomy - Tobacco History Second Hand Smoke Exposure: No Tobacco Use In Past 30 Days: No Smoking Status: Never smoker Tobacco Type: Cigarettes - Alcohol History How Often Do You Have a Drink Containing Alcohol: Never - Substance Use History Substance History: No History of Abuse - Travel History Recent Travel in the [place] Within the Last 8 Weeks: No Recent Travel Out of the Country Within the Last 8 Weeks: No - Immunization History Tetanus Immunization: Unsure Hx Influenza Vaccine This Season: Yes Medications and Allergies Active Medications: Active Medications Acetaminophen (Tylenol) 650 mg PO Q4H PRN PRN Reason: Temp > 100.4 Enoxaparin Sodium (Lovenox Inj) 80 mg SQ Q12HR FABIANO Last Admin: 10/31/17 08:56 Dose: 80 mg Sodium Chloride (Ns Inj) 1,000 mls @ 0 mls/hr IV.SIG BOLUS FABIANO Last Infusion: 10/30/17 18:18 Dose: Infused Heparin Sodium/Dextrose (Heparin/D5w 25,000 U/250 Ml) 25,000 unit in 250 mls @ 0 mls/hr IV.CONT TITRATE PRN; Protocol PRN Reason: Per Protocol Stop: 10/31/17 10:00 Last Titration: 10/31/17 04:50 Dose: 1,200 units/hr, 12 mls/hr Senna/Docusate Sodium (Hortencia-Colace) 1 tab PO BID PRN PRN Reason: CONSTIPATION Allergies Allergy/AdvReac Type Severity Reaction Status Date / Time latex Allergy Severe Hives Verified 09/23/17 14:29 POWDERED LATEX GLOVES Allergy Mild Hives Uncoded 09/23/17 14:28 Home Medications Medication Instructions Recorded Confirmed Type ranitidine HCl [Zantac] 150 mg PO DAILY 10/23/17 History Exam Vital signs: Vital Signs 10/30/17 13:08 10/30/17 14:06 10/30/17 19:12 Temperature 98.5 F Pulse Rate 81 80 97 H Respiratory Rate 19 16 Blood Pressure 133/90 167/76 H Pulse Oximetry 97 98 98 10/30/17 20:00 10/30/17 21:00 10/30/17 22:48 Temperature 98.5 F Pulse Rate 94 H 90 85 Respiratory Rate 18 18 20 Blood Pressure 156/93 H 135/83 157/94 H Pulse Oximetry 96 97 98 10/30/17 23:00 10/31/17 00:00 10/31/17 01:00 Temperature Pulse Rate 85 90 80 Respiratory Rate Blood Pressure Pulse Oximetry 10/31/17 02:00 10/31/17 03:16 10/31/17 04:00 Temperature 98.5 F Pulse Rate 76 74 78 Respiratory Rate 18 Blood Pressure 142/86 H Pulse Oximetry 98 10/31/17 07:25 10/31/17 08:44 Temperature 98.4 F Pulse Rate 77 90 Respiratory Rate 22 Blood Pressure 142/89 H Pulse Oximetry 97 Intake & Output 10/30/17 10/31/17 10/31/17 18:59 06:59 18:59 Intake Total 1000 / 1000 740 / 740 Output Total 600 / 600 Balance 1000 / 1000 140 / 140 Weight 86.183 kg Intake: IV 1000 / 1000 NS Inj 1,000 ML @ Wide Open IV. 1000 / 1000 SIG BOLUS FABIANO Rx#:[id number] Oral 740 / 740 Output: Urine 600 / 600 Other: Date of Last Bowel Movement 10/30/17 Narrative: GENERAL: Speaks in a quiet subdued voice appears as if he may be mildly depressed. SKIN: Warm and dry. HEAD: Atraumatic. Normocephalic. EYES: Pupils equal and round. No scleral icterus. No injection or drainage. ENT: No nasal bleeding or discharge. Mucous membranes pink and moist. NECK: Trachea midline. No JVD. CARDIOVASCULAR: Regular rate and rhythm. RESPIRATORY: No accessory muscle use. Clear to auscultation. Breath sounds equal bilaterally. GASTROINTESTINAL: Abdomen soft, non-tender, nondistended. Hepatic and splenic margins not palpable. MUSCULOSKELETAL: Extremities without clubbing, cyanosis, or edema. No obvious deformities. His right calf is only a few centimeters by my measurement bigger than the left calf there is an obvious vein pattern more on the right calf there is a palpable vein on the medial side of his right lower extremity. NEUROLOGICAL: Awake and alert. No obvious cranial nerve deficits. Motor grossly within normal limits. Five out of 5 muscle strength in the arms and legs. Normal speech. PSYCHIATRIC: Appropriate mood and affect; insight and judgment normal. He does become tearful when speaking about his late . Results - Labs Result diagrams: 10/31/17 03:32 10/31/17 03:32 Abnormal lab results 10/30/17 10/30/17 10/30/17 Range/Units 14:00 14:00 14:00 WBC (4.0-11.0) th/mm3 MPV 6.9 L (7.0-11.0) fL Barton % (Auto) 8.6 H (0.0-8.0) % Eos % (Auto) (0.0-4.0) % PT (9.8-11.6) sec APTT 22.8 L (24.3-30.1) sec Estimated GFR 69 L (>89) mL/min Random Glucose (74-106) mg/dL AST (15-37) U/L Troponin I Less than 0.02 L (0.02-0.05) ng/mL Albumin (3.4-5.0) g/dL 10/30/17 10/30/17 10/31/17 Range/Units 20:24 22:06 00:37 WBC (4.0-11.0) th/mm3 MPV (7.0-11.0) fL Barton % (Auto) (0.0-8.0) % Eos % (Auto) (0.0-4.0) % PT 12.1 H (9.8-11.6) sec APTT 136.8 H* D 104.3 H* D (24.3-30.1) sec Estimated GFR (>89) mL/min Random Glucose (74-106) mg/dL AST (15-37) U/L Troponin I Less than 0.02 L (0.02-0.05) ng/mL Albumin (3.4-5.0) g/dL 10/31/17 10/31/17 10/31/17 Range/Units 03:32 03:32 03:32 WBC 3.8 L (4.0-11.0) th/mm3 MPV 6.6 L (7.0-11.0) fL Barton % (Auto) 13.2 H (0.0-8.0) % Eos % (Auto) 5.6 H (0.0-4.0) % PT (9.8-11.6) sec APTT 40.4 H D (24.3-30.1) sec Estimated GFR 77 L (>89) mL/min Random Glucose 108 H (74-106) mg/dL AST 9 L (15-37) U/L Troponin I (0.02-0.05) ng/mL Albumin 3.1 L (3.4-5.0) g/dL Short CBC 10/30/17 10/31/17 Range/Units 14:00 03:32 WBC 5.0 3.8 L (4.0-11.0) th/mm3 Hgb 14.3 13.1 (13.0-17.0) gm/dL Hct 43.7 40.1 (39.0-51.0) % Plt Count 203 177 (150-450) th/mm3 [facility] 10/30/17 10/31/17 14:00 03:32 Sodium 140 143 Potassium 4.2 3.6 Chloride 103 103 Carbon Dioxide 29.6 31.2 BUN 11 11 Creatinine 1.28 1.17 Calcium 9.4 9.0 Cardiac Enzymes 10/30/17 10/30/17 Range/Units 14:00 20:24 Troponin I Less than 0.02 L Less than 0.02 L (0.02-0.05) ng/mL Liver Function 10/31/17 Range/Units 03:32 Total Bilirubin 0.5 (0.2-1.0) mg/dL AST 9 L (15-37) U/L ALT 15 (12-78) U/L Alkaline Phosphatase 49 (45-117) U/L Albumin 3.1 L (3.4-5.0) g/dL - Imaging Impressions Venous Doppler Study 10/30/17 16:03 CONCLUSION: 1. Extensive DVT. Chest CTA 10/30/17 17:05 CONCLUSION: 1. Pulmonary embolus right lower lobe. Caprini VTE Risk Assessment Caprini VTE Risk Assessment: Moderate/High Risk (score >= 2) VTE Pharmacological Exception Reason: Coagulopathy,INR elevated (DVT and PE) Caprini Risk Assessment Model: Point Value = 1 Point Value = 2 Point Value = 3 Point Value = 5 Age 41-60 Minor surgery BMI > 25 kg/m2 Swollen legs Varicose veins or History of unexplained or recurrent spontaneous Oral contraceptives or hormone replacement Sepsis (< 1 month) Serious lung disease, including pneumonia (< 1 month) Abnormal pulmonary function Acute myocardial infarction Congestive heart failure (< 1 month) History of inflammatory bowel disease Medical patient at bed rest Age 61-74 Arthroscopic surgery Major open surgery (> 45 min) Laparoscopic surgery (> 45 min) Malignancy Confined to bed (> 72 hours) Immobilizing plaster cast Central venous access Age >= 75 History of VTE Family history of VTE Factor V Leiden Prothrombin [id number] Lupus anticoagulant Anticardiolipin antibodies Elevated serum homocysteine Heparin-induced thrombocytopenia Other congenital or acquired thrombophilia Stroke (< 1 month) Elective arthroplasty Hip, pelvis, or leg fracture Acute spinal cord injury (< 1 month) Prophylaxis Regimen: Total Risk Factor Score Risk Level Prophylaxis Regimen 0-1 Low Early ambulation 2 Moderate Order ONE of the following: *Sequential Compression Device (SCD) *Heparin 5000 units SQ BID 3-4 Higher Order ONE of the following medications: *Heparin 5000 units SQ TID *Enoxaparin/Lovenox 40 mg SQ daily (WT < 150 kg, CrCl > 30 mL/min) *Enoxaparin/Lovenox 30 mg SQ daily (WT < 150 kg, CrCl > 10-29 mL/min) *Enoxaparin/Lovenox 30 mg SQ BID (WT < 150 kg, CrCl > 30 mL/min) AND/OR *Sequential Compression Device (SCD) 5 or more Highest Order ONE of the following medications: *Heparin 5000 units SQ TID (Preferred with Epidurals) *Enoxaparin/Lovenox 40 mg SQ daily (WT < 150 kg, CrCl > 30 mL/min) *Enoxaparin/Lovenox 30 mg SQ daily (WT < 150 kg, CrCl > 10-29 mL/min) *Enoxaparin/Lovenox 30 mg SQ BID (WT < 150 kg, CrCl > 30 mL/min) AND *Sequential Compression Device (SCD) Assessment and Plan - Assessment (1) Acute pulmonary embolism Code(s): I26.99 - Other pulmonary embolism without acute cor pulmonale Status : Acute Plan: 62-year-old male admitted for acute pulmonary embolism diagnosed with CTA as well as DVT diagnosed by venous Doppler studies. Patient reports a several week history of lower extremity pain as well as shortness of breath diaphoresis and dizziness. Patient denies any history of bleeding or clotting disorders with himself or his family. Patient also denies being a smoker. He has no history of neoplasms or malignancy. Patient does report an episode of fast heart rate but is currently normal sinus rhythm though he does become tacky even on admission up into the low 100 range. Patient denies any abdominal pain, neck and AAA possible but unlikely source of embolism in this setting as he does have a clot in his leg. Patient has a normal PT and INR but an abnormal APTT at 22.8. Patient to receive echo, ECG, protein C and protein S studies. If coagulation studies are normal consider other thrombophilic diseases such as factor V Leiden. -Continue IV heparin drip this was started in the emergency department in the interest of letting him get up and get around a little bit more will switch him over to Lovenox hopefully he can be put on a good p.o. medication, a relatively novel anticoagulant. However will have to see with his self-pay status if he will qualify for [employer] card which is an aid from the hospital to getting medication or if there is a program that he can qualify for that will allow him to have some good p.o. medicine ideally -Follow-up with echocardiography especially to look for right heart failure or other problems -Follow-up with ECG -Follow-up with protein C and S laboratory studies -Follow-up with fibrinogen labs that were done in the lab prior to getting his heparin started -Monitor on telemetry (2) DVT (deep venous thrombosis) Code(s): I82.409 - Acute embolism and thrombosis of unspecified deep veins of unspecified lower extremity Status: Acute Plan: This patient is admitted for acute lower lobe pulmonary embolism as well as right lower extremity DVT. Patient has no history of venous stasis, extensive or prolonged recent travel, is a non-smoker, and has no history of malignancies or clotting disorders. Patient continues to endorse pain in the medial and lateral aspects of his lower right extremity. PE likely to be an embolus from his DVT. Please see plan for pulmonary embolism above. (3) Weakness Code(s): R53.1 - Weakness Status: Acute Plan: Patient reports a several week history of dizziness and weakness accompanied by diaphoresis, shortness of breath and a one-time episode of fast heart rate without any other associated symptoms. He has experienced one episode of syncope which he says was a year ago which resulted in no bodily injury. He denies any recent loss of consciousness, involuntary incontinence, facial droop , or loss of function. Possible causes of his dizziness may include metabolic and electrolyte disturbances, thyroid hormone disturbances, cardiac origin to include atrial fibrillation with RVR for example, neurogenic in origin, hydration status, or blood glucose levels or acute PE. Random glucose was within normal limits at 90, patient has no potassium or calcium abnormalities. His initial troponin was in the normal limits less than 0.02. His TSH was within normal limits. Initial ECG showed sinus rhythm with a heart rate of 80, borderline left axis deviation with no ST elevations or depressions. Patient to remain on telemetry to observe any cardiogenic abnormalities. -Monitor on telemetry -Follow-up with echocardiograph -Suspect he will get his acute weakness when he would have a showering PE of some type that would go to his lungs and affect his hemodynamic and cardiac status. Fortunately even though this happened multiple times he would manage to improve after each episode. (4) Nutrition, metabolism, and development symptoms Code(s): R63.8 - Other symptoms and signs concerning food and fluid intake Status: Acute Plan: He should be able to have a regular diet (1) Acute pulmonary embolism Qualifiers: Pulmonary embolism type: other Acute cor pulmonale presence: without acute cor pulmonale Qualified Code(s): I26.99 - Other pulmonary embolism without acute cor pulmonale (2) DVT (deep venous thrombosis) Qualifiers: DVT location: lower extremity Affected thrombotic vein of extremity: unspecified vein of extremity Chronicity: acute Laterality: right Qualified Code(s): I82.401 - Acute embolism and thrombosis of unspecified deep veins of right lower extremity
[2017-10-31] MEDS: Famotidine 20 MG Tablet PO SCH ×2 (11:10→20:45)
--- NOTE | 2017-10-31 12:30 | ECG ---
Date Performed: 10/30/2017 Time Performed: 20:42:24 PTAGE: 62 years EKG: Sinus rhythm MARKED LEFT AXIS DEVIATION ABNORMAL ECG PREVIOUS TRACING : 10/30/2017 14.16 Since the previous tracing, no significant change noted DOCTOR: Meera Payne Interpretating Date/Time 10/31/2017 12:29:41
--- NOTE | 2017-10-31 13:35 | ECG ---
Date Performed: 10/30/2017 Time Performed: 14:16:14 PTAGE: 62 years EKG: Sinus rhythm BORDERLINE LEFT AXIS DEVIATION BORDERLINE ECG Compared to PREVIOUS TRACING , there has been no signficant serial change. PREVIOUS TRACIN10/24/19 18 10.46.00 DOCTOR: Meera Payne Interpretating Date/Time 10/31/2017 13:34:32
[2017-10-31] MEDS ORDERED: LORazepam 0.5 MG Tablet PO ONE (16:06)
[2017-11-01 05:21] LABS: Hematocrit 40.2 % (39.0-51.0); Hemoglobin 13.2 gm/dL (13.0-17.0); Mean Corpuscular HGB Conc 32.8 % (32.0-36.0); Mean Corpuscular Hemoglobin 28.7 pg (27.0-34.0); Mean Corpuscular Volume 87.4 fL (80.0-100.0); Mean Platelet Volume 7.6 fL (7.0-11.0); Platelet Count 176 th/mm3 (150-450); Red Cell Distribution Width 13.8 % (11.6-17.2); White Blood Count 2.9 th/mm3 (4.0-11.0)
[2017-11-01] MEDS: Enoxaparin Inj 80 MG/0.8 ML Syringe SQ SCH ×2 (08:29→21:03)
[2017-11-01] MEDS: Famotidine 20 MG Tablet PO SCH ×2 (08:29→21:03)
--- NOTE | 2017-11-01 09:11 | P.PNFP ---
Subjective Interval history: Mr Saleh had no acute events overnight; however, he did state he felt lightheaded again yesterday while transferring from bedside to chair. He states he does not have any pain in his legs. He is eating and drinking OK, denies CP, SOB, N/V/D and abdominal pain. AFVSS. Discussed with him that we were awaiting CM to arrange for Blue card so we can get oral anticoagulation for him to prevent future DVT and PE. <Robert Pop III - 11/01/17 11:08> Results - Labs Result diagrams: 11/01/17 04:55 10/31/17 03:32 <Dianne Chavarria - 11/01/17 11:26> Abnormal lab results 10/31/17 11/01/17 11/01/17 Range/Units 11:42 04:15 04:55 WBC 2.9 L (4.0-11.0) th/mm3 APTT 43.8 H 31.3 H D (24.3-30.1) sec Short CBC 11/01/17 Range/Units 04:55 WBC 2.9 L (4.0-11.0) th/mm3 Hgb 13.2 (13.0-17.0) gm/dL Hct 40.2 (39.0-51.0) % Plt Count 176 (150-450) th/mm3 <Dianne Chavarria - 11/01/17 11:26> Abnormal lab results 10/31/17 11/01/17 11/01/17 Range/Units 11:42 04:15 04:55 WBC 2.9 L (4.0-11.0) th/mm3 APTT 43.8 H 31.3 H D (24.3-30.1) sec Short CBC 11/01/17 Range/Units 04:55 WBC 2.9 L (4.0-11.0) th/mm3 Hgb 13.2 (13.0-17.0) gm/dL Hct 40.2 (39.0-51.0) % Plt Count 176 (150-450) th/mm3 <Robert Pop III - 11/01/17 09:11> Physical Exam Vital signs: Vital Signs 10/31/17 12:00 10/31/17 13:00 10/31/17 14:00 Temperature Pulse Rate 80 78 76 Respiratory Rate Blood Pressure Pulse Oximetry Pulse Oximetry [Exertion on Room Air] Pulse Oximetry [Resting on Room Air] 10/31/17 15:00 10/31/17 15:50 10/31/17 16:00 Temperature 98.8 F Pulse Rate 80 85 80 Respiratory Rate 18 Blood Pressure 141/80 H Pulse Oximetry 98 Pulse Oximetry [Exertion on Room Air] Pulse Oximetry [Resting on Room Air] 10/31/17 17:07 10/31/17 18:00 10/31/17 19:00 Temperature Pulse Rate 79 87 73 Respiratory Rate Blood Pressure Pulse Oximetry Pulse Oximetry [Exertion on Room Air] Pulse Oximetry [Resting on Room Air] 10/31/17 20:00 10/31/17 20:39 10/31/17 21:00 Temperature 98.0 F Pulse Rate 70 78 82 Respiratory Rate 18 Blood Pressure 149/84 H Pulse Oximetry 99 Pulse Oximetry [Exertion on Room Air] Pulse Oximetry [Resting on Room Air] 10/31/17 22:00 10/31/17 23:00 10/31/17 23:35 Temperature 98.2 F Pulse Rate 66 79 78 Respiratory Rate 17 Blood Pressure 137/87 Pulse Oximetry 99 Pulse Oximetry [Exertion on Room Air] Pulse Oximetry [Resting on Room Air] 11/01/17 00:00 11/01/17 01:00 11/01/17 02:00 Temperature Pulse Rate 70 72 72 Respiratory Rate Blood Pressure Pulse Oximetry Pulse Oximetry [Exertion on Room Air] Pulse Oximetry [Resting on Room Air] 11/01/17 03:00 11/01/17 04:00 11/01/17 04:30 Temperature 98.1 F Pulse Rate 72 74 86 Respiratory Rate 18 Blood Pressure 135/84 Pulse Oximetry 99 Pulse Oximetry [Exertion on Room Air] Pulse Oximetry [Resting on Room Air] 11/01/17 05:00 11/01/17 06:00 11/01/17 07:00 Temperature 98.1 F Pulse Rate 81 79 80 Respiratory Rate 18 Blood Pressure 131/85 Pulse Oximetry 99 Pulse Oximetry [Exertion on Room Air] Pulse Oximetry [Resting on Room Air] 11/01/17 08:00 11/01/17 10:18 Temperature Pulse Rate 82 Respiratory Rate Blood Pressure Pulse Oximetry Pulse Oximetry [Exertion on Room Air] 98 Pulse Oximetry [Resting on Room Air] 98 Intake & Output 10/31/17 11/01/17 11/01/17 18:59 06:59 18:59 Intake Total 1306 / 1306 240 / 240 Balance 1306 / 1306 240 / 240 Weight 88 kg 88 kg Intake: IV 142 / 142 Heparin/D5W 25,000 U/250 mL 25, 142 / 142 000 unit In 250 ml @ Per Protocol IV.CONT TITRATE PRN Rx #:[id number] Oral 1164 / 1164 240 / 240 Other: # Voids 700 2 Date of Last Bowel Movement 10/31/17 10/31/17 # Bowel Movements 1 <Dianne Chavarria M - 11/01/17 11:26> Vital Signs 10/31/17 10:00 10/31/17 11:00 10/31/17 11:13 Temperature 98.0 F Pulse Rate 60 75 81 Respiratory Rate 18 Blood Pressure 141/88 H Pulse Oximetry 99 10/31/17 12:00 10/31/17 13:00 10/31/17 14:00 Temperature Pulse Rate 80 78 76 Respiratory Rate Blood Pressure Pulse Oximetry 10/31/17 15:00 10/31/17 15:50 10/31/17 16:00 Temperature 98.8 F Pulse Rate 80 85 80 Respiratory Rate 18 Blood Pressure 141/80 H Pulse Oximetry 98 10/31/17 17:07 10/31/17 18:00 10/31/17 19:00 Temperature Pulse Rate 79 87 73 Respiratory Rate Blood Pressure Pulse Oximetry 10/31/17 20:00 10/31/17 20:39 10/31/17 21:00 Temperature 98.0 F Pulse Rate 70 78 82 Respiratory Rate 18 Blood Pressure 149/84 H Pulse Oximetry 99 10/31/17 22:00 10/31/17 23:00 10/31/17 23:35 Temperature 98.2 F Pulse Rate 66 79 78 Respiratory Rate 17 Blood Pressure 137/87 Pulse Oximetry 99 11/01/17 00:00 11/01/17 01:00 11/01/17 02:00 Temperature Pulse Rate 70 72 72 Respiratory Rate Blood Pressure Pulse Oximetry 11/01/17 03:00 11/01/17 04:00 11/01/17 04:30 Temperature 98.1 F Pulse Rate 72 74 86 Respiratory Rate 18 Blood Pressure 135/84 Pulse Oximetry 99 11/01/17 05:00 11/01/17 06:00 11/01/17 07:00 Temperature 98.1 F Pulse Rate 81 79 80 Respiratory Rate 18 Blood Pressure 131/85 Pulse Oximetry 99 Intake & Output 10/31/17 11/01/17 11/01/17 18:59 06:59 18:59 Intake Total 1306 / 1306 240 / 240 Balance 1306 / 1306 240 / 240 Weight 88 kg 88 kg Intake: IV 142 / 142 Heparin/D5W 25,000 U/250 mL 25, 142 / 142 000 unit In 250 ml @ Per Protocol IV.CONT TITRATE PRN Rx #:[id number] Oral 1164 / 1164 240 / 240 Other: # Voids 700 2 Date of Last Bowel Movement 10/31/17 10/31/17 # Bowel Movements 1 <Robert Pop III - 11/01/17 09:11> Narrative: GENERAL: Middle-age AAM with athletic build lying in bed in [facility]. SKIN: Warm and dry. No rash or lesions. HEAD: Normocephalic. EYES: No scleral icterus. No injection or drainage. NECK: Supple, trachea midline. No JVD or lymphadenopathy. CARDIOVASCULAR: Regular rate and rhythm without murmurs, gallops, or rubs. RESPIRATORY: Breath sounds equal bilaterally. No accessory muscle use or increased WOB. 99% on RA. GASTROINTESTINAL: Abdomen soft, non-tender, nondistended. MUSCULOSKELETAL: No cyanosis, or edema. BACK: Nontender without obvious deformity. No CVA tenderness. <Robert Pop III - 11/01/17 11:08> Assessment and Plan - Assessment (1) Acute pulmonary embolism Code(s): I26.99 - Other pulmonary embolism without acute cor pulmonale Status : Acute (2) DVT (deep venous thrombosis) Code(s): I82.409 - Acute embolism and thrombosis of unspecified deep veins of unspecified lower extremity Status: Acute (3) Weakness Code(s): R53.1 - Weakness Status: Acute (4) Nutrition, metabolism, and development symptoms Code(s): R63.8 - Other symptoms and signs concerning food and fluid intake Status: Acute <Dianne Chavarria - 11/01/17 11:26> (1) Acute pulmonary embolism Code(s): I26.99 - Other pulmonary embolism without acute cor pulmonale Status : Acute Plan: 62-year-old male admitted for acute pulmonary embolism diagnosed with CTA as well as RLE DVT diagnosed by venous Doppler studies. Patient reports a several week history of lower extremity pain as well as shortness of breath, diaphoresis and dizziness, fear of dying, but NO CP. Denies history of bleeding or clotting disorders with himself or his family. Denies hx smoking, neoplasms or malignancy. Patient does report an episode of fast heart rate but ECG showing normal sinus rhythm though he was tachycardic on admission in low 100 range. INR wnl but aPTT 31.3. Echo ordered, awaiting protein C and protein S studies. -Pt received heparin bolus in ED followed by heparin IV drip that was discontinued 10/31 -Lovenox 80 mg subq daily started 10/31 -Echo ordered -ECG showing NSR with left axis deviation -Troponin <0.02 -Protein C and S pending -Tele - consult for possible Blue card to arrange low cost oral anticoagulant therapy for 6 months -PT eval and treat/walk test--goal to improve strength and stamina (2) DVT (deep venous thrombosis) Code(s): I82.409 - Acute embolism and thrombosis of unspecified deep veins of unspecified lower extremity Status: Acute Plan: Patient admitted for acute RLL PE as well as RLE DVT. 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 Pt denies pain in RLE this morning. PE likely an embolus from his DVT. See plan for pulmonary embolism above. (3) Weakness Code(s): R53.1 - Weakness Status: Acute Plan: Patient reports a several week history of dizziness and weakness accompanied by diaphoresis, shortness of breath and a one-time episode of fast heart rate without any other associated symptoms. He has experienced one episode of syncope which he says was a year ago which resulted in no bodily injury. He denies any recent loss of consciousness, involuntary incontinence, facial droop , or loss of function. Possible causes of his dizziness may include metabolic and electrolyte disturbances, thyroid hormone disturbances, cardiac origin to include atrial fibrillation with RVR for example, neurogenic in origin, hydration status, or blood glucose levels or acute PE. -TSH wnl 1.70 -Plan as above (4) Nutrition, metabolism, and development symptoms Code(s): R63.8 - Other symptoms and signs concerning food and fluid intake Status: Acute Plan: Regular diet, taking PO fluids, and no electrolyte abnormalities. <Robert Pop III - 11/01/17 10:42> - Attending Attestation The exam, history, and the medical decision-making described in the above note were completed with the assistance of the resident physician. I reviewed and agree with the findings presented. I attest that I had a [id number] encounter with the patient on the same day, and personally performed and documented my assessment and findings in the medical record. asked case management about a blue card and hopefully patient assistance <Dianne Chavarria - 11/01/17 11:26> <Robert Pop III - Last Filed: 11/01/17 10:42> (1) Acute pulmonary embolism Qualifiers: Pulmonary embolism type: other Acute cor pulmonale presence: without acute cor pulmonale Qualified Code(s): I26.99 - Other pulmonary embolism without acute cor pulmonale (2) DVT (deep venous thrombosis) Qualifiers: DVT location: lower extremity Affected thrombotic vein of extremity: unspecified vein of extremity Chronicity: acute Laterality: right Qualified Code(s): I82.401 - Acute embolism and thrombosis of unspecified deep veins of right lower extremity <Dianne Chavarria - Last Filed: 11/01/17 11:26> (1) Acute pulmonary embolism Qualifiers: Pulmonary embolism type: other Acute cor pulmonale presence: without acute cor pulmonale Qualified Code(s): I26.99 - Other pulmonary embolism without acute cor pulmonale (2) DVT (deep venous thrombosis) Qualifiers: DVT location: lower extremity Affected thrombotic vein of extremity: unspecified vein of extremity Chronicity: acute Laterality: right Qualified Code(s): I82.401 - Acute embolism and thrombosis of unspecified deep veins of right lower extremity <Robert Pop III - Last Filed: 11/01/17 10:42> (1) Acute pulmonary embolism Qualifiers: Pulmonary embolism type: other Acute cor pulmonale presence: without acute cor pulmonale Qualified Code(s): I26.99 - Other pulmonary embolism without acute cor pulmonale (2) DVT (deep venous thrombosis) Qualifiers: DVT location: lower extremity Affected thrombotic vein of extremity: unspecified vein of extremity Chronicity: acute Laterality: right Qualified Code(s): I82.401 - Acute embolism and thrombosis of unspecified deep veins of right lower extremity <Dianne Chavarria - Last Filed: 11/01/17 11:26> (1) Acute pulmonary embolism Qualifiers: Pulmonary embolism type: other Acute cor pulmonale presence: without acute cor pulmonale Qualified Code(s): I26.99 - Other pulmonary embolism without acute cor pulmonale (2) DVT (deep venous thrombosis) Qualifiers: DVT location: lower extremity Affected thrombotic vein of extremity: unspecified vein of extremity Chronicity: acute Laterality: right Qualified Code(s): I82.401 - Acute embolism and thrombosis of unspecified deep veins of right lower extremity
--- NOTE | 2017-11-01 17:48 | ECHRPT ---
Indication: chest pain CONCLUSIONS The left ventricular systolic function is normal with an estimated ejection fraction in the range of 60-65%. Normal left ventricular size. Wall thickness is normal. No regional wall motion abnormalities are present. BP: / HR: Rhythm: MEASUREMENTS (Male / Female) Normal Values Technical Quality: 2D ECHO LV Diastolic Diameter PLAX 5.1 cm 4.2 - 5.9 / 3.9 - 5.3 cm LV Systolic Diameter PLAX 3.5 cm IVS Diastolic Thickness 0.8 cm 0.6 - 1.0 / 0.6 - 0.9 cm LVPW Diastolic Thickness 0.8 cm 0.6 - 1.0 / 0.6 - 0.9 cm LV Relative Wall Thickness 0.3 LV Ejection Fraction MOD 4C 62.1 % LV Ejection Fraction 4C AL 63.2 % FINDINGS LEFT VENTRICLE The left ventricular systolic function is normal with an estimated ejection fraction in the range of 60-65%. Normal left ventricular size. Wall thickness is normal. No regional wall motion abnormalities are present. RIGHT VENTRICLE Normal right ventricular size and systolic function. LEFT ATRIUM The left atrial size is normal. RIGHT ATRIUM The right atrial size is normal. ATRIAL SEPTUM Normal atrial septal thickness without atrial level shunting by limited color doppler interrogation. AORTA The aortic root and proximal ascending aorta are normal in size on limited imaging. MITRAL VALVE Structurally normal mitral valve. No mitral valve stenosis or regurgitation. AORTIC VALVE Trileaflet aortic valve. No aortic valve stenosis or regurgitation. TRICUSPID VALVE Structurally normal tricuspid valve. No tricuspid valve stenosis or regurgitation. PULMONARY VALVE The pulmonary valve is not well visualized. VESSELS The inferior vena cava is normal in size. PERICARDIUM No pericardial effusion. Lonnie Ferrell MD, FACC (Electronically Signed) Final Date:01 November 2017 17:47
[2017-11-01 20:55] VITALS: O2SAT 98
--- NOTE | 2017-11-02 08:44 | P.PNFP ---
Subjective Interval history: Mr Saleh had no acute events overnight. He worked well with PT yesterday and was able to ambulate over 150 feet. Stated he got chills last night but stated the A/C blower is over his head. We discussed his normal ECHO study yesterday. We discussed his likely discharge today once we have his anticoagulation plan mapped out. He denies CP, SOB, fever, N/V/D, and leg pain. <Robert Pop III H - 11/02/17 10:46> Results - Labs Result diagrams: 11/01/17 04:55 10/31/17 03:32 <Dianne Chavarria M - 11/04/17 11:40> Physical Exam Vital signs: Vital Signs 11/01/17 10:18 11/01/17 11:00 11/01/17 12:00 Temperature 98.4 F Pulse Rate 80 87 Respiratory Rate 16 Blood Pressure 147/84 H Pulse Oximetry 99 Pulse Oximetry [Exertion on Room Air] 98 Pulse Oximetry [Resting on Room Air] 98 11/01/17 13:00 11/01/17 14:00 11/01/17 15:00 Temperature 98.4 F Pulse Rate 85 85 85 Respiratory Rate 16 Blood Pressure 141/94 H Pulse Oximetry 85 L Pulse Oximetry [Exertion on Room Air] Pulse Oximetry [Resting on Room Air] 11/01/17 16:00 11/01/17 17:00 11/01/17 18:00 Temperature Pulse Rate 81 80 89 Respiratory Rate Blood Pressure Pulse Oximetry Pulse Oximetry [Exertion on Room Air] Pulse Oximetry [Resting on Room Air] 11/01/17 19:00 11/01/17 20:00 11/01/17 20:53 Temperature 97.9 F Pulse Rate 88 84 82 Respiratory Rate 18 Blood Pressure 147/89 H Pulse Oximetry 98 Pulse Oximetry [Exertion on Room Air] Pulse Oximetry [Resting on Room Air] 11/01/17 21:00 11/01/17 22:00 11/01/17 23:00 Temperature Pulse Rate 83 83 79 Respiratory Rate Blood Pressure Pulse Oximetry Pulse Oximetry [Exertion on Room Air] Pulse Oximetry [Resting on Room Air] 11/01/17 23:47 11/02/17 00:00 11/02/17 01:00 Temperature 98.0 F Pulse Rate 76 76 71 Respiratory Rate 17 Blood Pressure 122/70 Pulse Oximetry 98 Pulse Oximetry [Exertion on Room Air] Pulse Oximetry [Resting on Room Air] 11/02/17 02:00 11/02/17 03:00 11/02/17 04:00 Temperature Pulse Rate 67 86 74 Respiratory Rate Blood Pressure Pulse Oximetry Pulse Oximetry [Exertion on Room Air] Pulse Oximetry [Resting on Room Air] 11/02/17 04:24 11/02/17 05:00 11/02/17 06:00 Temperature 98.2 F Pulse Rate 87 62 70 Respiratory Rate 18 Blood Pressure 126/82 Pulse Oximetry 98 Pulse Oximetry [Exertion on Room Air] Pulse Oximetry [Resting on Room Air] Intake & Output 11/01/17 11/02/17 11/02/17 18:59 06:59 18:59 Intake Total 940 / 940 480 / 480 Balance 940 / 940 480 / 480 Weight 87.5 kg Intake: Oral 940 / 940 480 / 480 Other: # Voids 5 4 Date of Last Bowel Movement 11/01/17 <Robert Pop III - 11/02/17 08:44> Narrative: GENERAL: Middle-age AAM with athletic build lying in bed in [facility]. SKIN: Warm and dry. No rash or lesions. HEAD: Normocephalic. EYES: No scleral icterus. No injection or drainage. NECK: Supple, trachea midline. CARDIOVASCULAR: Regular rate and rhythm without murmurs, gallops, or rubs. RESPIRATORY: Breath sounds equal bilaterally. No accessory muscle use or increased WOB. GASTROINTESTINAL: Abdomen soft, non-tender, nondistended. MUSCULOSKELETAL: No cyanosis, or edema. LEs without edema, non-tender. <Robert Pop III - 11/02/17 10:46> Assessment and Plan - Assessment (1) Acute pulmonary embolism Code(s): I26.99 - Other pulmonary embolism without acute cor pulmonale Status : Acute (2) DVT (deep venous thrombosis) Code(s): I82.409 - Acute embolism and thrombosis of unspecified deep veins of unspecified lower extremity Status: Acute (3) Weakness Code(s): R53.1 - Weakness Status: Acute (4) Nutrition, metabolism, and development symptoms Code(s): R63.8 - Other symptoms and signs concerning food and fluid intake Status: Acute (5) Depression Code(s): F32.9 - Major depressive disorder, single episode, unspecified Status : Acute <Dianne Chavarria - 11/04/17 11:40> (1) Acute pulmonary embolism Code(s): I26.99 - Other pulmonary embolism without acute cor pulmonale Status : Acute Plan: 62-year-old male admitted for acute pulmonary embolism diagnosed with CTA as well as RLE DVT diagnosed by venous Doppler studies. Patient reports a several week history of lower extremity pain as well as shortness of breath, diaphoresis and dizziness, fear of dying, but NO CP. Denies history of bleeding or clotting disorders with himself or his family. Denies hx smoking, neoplasms or malignancy. Patient does report an episode of fast heart rate but ECG showing normal sinus rhythm though he was tachycardic on admission in low 100 range. INR wnl but aPTT 31.3. Awaiting protein C and protein S studies. -Pt received heparin bolus in ED followed by heparin IV drip that was discontinued 10/31 -Lovenox 80 mg subq daily started 10/31 -Echo wnl showing normal LV size and EF 60-65%, no septal or wall motion abnormality; normal RV, LA and RA. -ECG showing NSR with left axis deviation -Troponin <0.02 -Protein C and S pending -Tele -CM consult for possible Blue card to arrange low cost oral anticoagulant therapy for 6 months -PT eval to improve stamina and ambulation; has recommended no rehab upon DC (2) DVT (deep venous thrombosis) Code(s): I82.409 - Acute embolism and thrombosis of unspecified deep veins of unspecified lower extremity Status: Acute Plan: Patient admitted for acute RLL PE as well as RLE DVT. 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 Pt denies pain in RLE this morning. PE likely an embolus from his DVT. See plan for pulmonary embolism above. (3) Weakness Code(s): R53.1 - Weakness Status: Acute Plan: Patient reports a several week history of dizziness and weakness accompanied by diaphoresis, shortness of breath and a one-time episode of fast heart rate without any other associated symptoms. Describes recurrent episodes of weakness associated with diaphoresis. -TSH wnl 1.70 -Plan as above (4) Nutrition, metabolism, and development symptoms Code(s): R63.8 - Other symptoms and signs concerning food and fluid intake Status: Acute Plan: Regular diet, taking PO fluids, and no electrolyte abnormalities. (5) Depression Code(s): F32.9 - Major depressive disorder, single episode, unspecified Status : Acute Plan: Pt's of 36 years within the last year. Pt continues to refer to being sad and lonely but has denied SI. Today pt states he gets lonely and has accepted offer of psychology counselling referral on discharge. -Psychological counselling as outpt on discharge <Robert Pop III - 11/02/17 10:38> - Assessment and Plan Discussed Condition With: Pt seen with Dr Abarca and DW Dr Chavarria <Robert Pop III - 11/02/17 10:46> - Attending Attestation The exam, history, and the medical decision-making described in the above note were completed with the assistance of the resident physician. I reviewed and agree with the findings presented. I attest that I had a [id number] encounter with the patient on the same day, and personally performed and documented my assessment and findings in the medical record. He needs a blue card to pay for his medication. <Dianne Chavarria - 11/04/17 11:40> <Robert Pop III - Last Filed: 11/02/17 10:38> (1) Acute pulmonary embolism Qualifiers: Pulmonary embolism type: other Acute cor pulmonale presence: without acute cor pulmonale Qualified Code(s): I26.99 - Other pulmonary embolism without acute cor pulmonale (2) DVT (deep venous thrombosis) Qualifiers: DVT location: lower extremity Affected thrombotic vein of extremity: unspecified vein of extremity Chronicity: acute Laterality: right Qualified Code(s): I82.401 - Acute embolism and thrombosis of unspecified deep veins of right lower extremity (5) Depression Qualifiers: Depression Type: unspecified Qualified Code(s): F32.9 - Major depressive disorder, single episode, unspecified <Dianne Chavarria - Last Filed: 11/04/17 11:40> (1) Acute pulmonary embolism Qualifiers: Pulmonary embolism type: other Acute cor pulmonale presence: without acute cor pulmonale Qualified Code(s): I26.99 - Other pulmonary embolism without acute cor pulmonale (2) DVT (deep venous thrombosis) Qualifiers: DVT location: lower extremity Affected thrombotic vein of extremity: unspecified vein of extremity Chronicity: acute Laterality: right Qualified Code(s): I82.401 - Acute embolism and thrombosis of unspecified deep veins of right lower extremity (5) Depression Qualifiers: Depression Type: unspecified Qualified Code(s): F32.9 - Major depressive disorder, single episode, unspecified <Robert Pop III H - Last Filed: 11/02/17 10:38> (1) Acute pulmonary embolism Qualifiers: Pulmonary embolism type: other Acute cor pulmonale presence: without acute cor pulmonale Qualified Code(s): I26.99 - Other pulmonary embolism without acute cor pulmonale (2) DVT (deep venous thrombosis) Qualifiers: DVT location: lower extremity Affected thrombotic vein of extremity: unspecified vein of extremity Chronicity: acute Laterality: right Qualified Code(s): I82.401 - Acute embolism and thrombosis of unspecified deep veins of right lower extremity (5) Depression Qualifiers: Depression Type: unspecified Qualified Code(s): F32.9 - Major depressive disorder, single episode, unspecified <Dianne Chavarria - Last Filed: 11/04/17 11:40> (1) Acute pulmonary embolism Qualifiers: Pulmonary embolism type: other Acute cor pulmonale presence: without acute cor pulmonale Qualified Code(s): I26.99 - Other pulmonary embolism without acute cor pulmonale (2) DVT (deep venous thrombosis) Qualifiers: DVT location: lower extremity Affected thrombotic vein of extremity: unspecified vein of extremity Chronicity: acute Laterality: right Qualified Code(s): I82.401 - Acute embolism and thrombosis of unspecified deep veins of right lower extremity (5) Depression Qualifiers: Depression Type: unspecified Qualified Code(s): F32.9 - Major depressive disorder, single episode, unspecified
[2017-11-02] MEDS: Enoxaparin Inj 80 MG/0.8 ML Syringe SQ SCH (09:45)
[2017-11-02 14:42] VITALS: RESP 16; TEMP 98.3
[2017-11-02 14:49] VITALS: BP 133/84
--- NOTE | 2017-11-02 15:57 | P.DS ---
Date of admission: 10/30/17 18:32 Primary care physician: Francis Ivory MD Attending physician on discharge: Dianne Chavarria Anticipated date of discharge: 11/02/17 Brief History from admission: This patient is a 62-year-old male with an approximately two-week history of dizziness and weakness who was admitted for PE and DVT. Patient reports that several weeks ago he began to have several episodes of weakness particularly while driving that were accompanied by feeling "very hot" and diaphoresis. During the patient's travels from the local area to [place] he reports several episodes of needing to stop due to perceived weakness. During these times he would have to line puller, have his car towed home, and call a cab due to his dizziness. Per patient during these episodes he would feel like he was "dying" and experienced intense anxiety and panic, as well as shortness of breath. Throughout this time patient also endorsed a several week history of right lower extremity pain that he described as tightness. The leg pain is nonradiating, sharp, and located on the lateral and medial sides of his lower right extremity. The right lower extremity pain is relieved by standing and worsened by sitting. There were no other associated symptoms. The events that brought him into the hospital this time began when he arrived at [facility] , approximately 7 minutes after his arrival patient began to experience weakness and dizziness accompanied by some diaphoresis, at which point a fellow [facility] member gave him a ride to the emergency department. On arrival the patient had a wells score of 4.5 for PE and a 2 for DVT indicating moderate risk for both. 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 He denies any recent airplane travel or extensive car rides other than his drives to [place]. He denies any history of blood or clotting disorders. This am he was concerned about the floaters in his eyes. He had adequate and normal vision otherwise. He was placed on a heparin drip in the ED. He has had no other complaints overnight. 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, he is a never smoker, does not drink, and does not endorse use of any recreational or illicit drugs Allergies: Per EMR latex, patient did not endorse any other allergies Code Status: Full code DS: Diagnosis - Discharge Diagnosis (1) Acute pulmonary embolism Status: Acute (2) DVT (deep venous thrombosis) Status: Acute (3) Weakness Status: Acute (4) Nutrition, metabolism, and development symptoms Status: Acute (5) Depression Status: Acute DS: Summary Hospital Course: Mr Saleh is a 62 YO AAM admitted to [facility] on 10/30/17 with RLE DVT and RLL PE on imaging in the ED. Pt was given a Heparin bolus and then started on Heparin drip. Pt did not require supplemental oxygen following the first hospital day. Pt reported some RLE tightness and pain in his right calf on admission but that quickly resolved over the ensuring day or two. He has ambulated with PT who recommend no rehab upon discharge. Pt was transitioned from Heparin to Lovenox at therapeutic dose on 80 mg subcutaneously BID. Pt had an ECHO study performed on 11/01 that is normal with LV EF 60-65% with no septal or wall motion abnormalities. Due to pt being self-pay, we consulted CM to assist patient in obtaining a Blue Card to ease the cost of anticoagulant medication upon discharge. Additionally, pt feels depressed due to of his of 36 years within the last year and has requested psychological counselling upon discharge. We will refer him for psychological counselling as an outpatient. Pt is stable, AFVSS, with physical exam benign on day of discharge. He is being discharged on Eliquis 10 mg BID for 7 days followed by 5 mg BID for the next 3- 6 months of therapy to prevent future PE or DVT. Pt will see his PCP within the next 3-5 days to coordinate future care requirements. - Time Spent with Patient Total time spent providing and/or coordinating discharge services: Greater than 30 minutes - Quality: VTE VTE Discharge Instructions: Encouragement of compliance with medication regimen Deep Vein Thrombosis/Pulmonary Embolism Present on Admission: Yes Exam Vital signs: Vital Signs 11/01/17 16:00 11/01/17 17:00 11/01/17 18:00 Temperature Pulse Rate 81 80 89 Respiratory Rate Blood Pressure Pulse Oximetry 11/01/17 19:00 11/01/17 20:00 11/01/17 20:53 Temperature 97.9 F Pulse Rate 88 84 82 Respiratory Rate 18 Blood Pressure 147/89 H Pulse Oximetry 98 11/01/17 21:00 11/01/17 22:00 11/01/17 23:00 Temperature Pulse Rate 83 83 79 Respiratory Rate Blood Pressure Pulse Oximetry 11/01/17 23:47 11/02/17 00:00 11/02/17 01:00 Temperature 98.0 F Pulse Rate 76 76 71 Respiratory Rate 17 Blood Pressure 122/70 Pulse Oximetry 98 11/02/17 02:00 11/02/17 03:00 11/02/17 04:00 Temperature Pulse Rate 67 86 74 Respiratory Rate Blood Pressure Pulse Oximetry 11/02/17 04:24 11/02/17 05:00 11/02/17 06:00 Temperature 98.2 F Pulse Rate 87 62 70 Respiratory Rate 18 Blood Pressure 126/82 Pulse Oximetry 98 11/02/17 07:00 11/02/17 08:00 11/02/17 11:00 Temperature 98.3 F Pulse Rate 80 80 84 Respiratory Rate 16 16 Blood Pressure 133/84 Pulse Oximetry Intake & Output 11/01/17 11/02/17 11/02/17 18:59 06:59 18:59 Intake Total 940 / 940 480 / 480 Balance 940 / 940 480 / 480 Weight 87.5 kg Intake: Oral 940 / 940 480 / 480 Other: # Voids 5 4 Date of Last Bowel Movement 11/01/17 Narrative: GENERAL: Middle-age AAM with athletic build lying in bed in [facility]. SKIN: Warm and dry. No rash or lesions. HEAD: Normocephalic. EYES: No scleral icterus. No injection or drainage. NECK: Supple, trachea midline. CARDIOVASCULAR: Regular rate and rhythm without murmurs, gallops, or rubs. RESPIRATORY: Breath sounds equal bilaterally. No accessory muscle use or increased WOB. GASTROINTESTINAL: Abdomen soft, non-tender, nondistended. MUSCULOSKELETAL: No cyanosis, or edema. LEs without edema, non-tender to palpation, and appearing of equal size. Results Procedures completed during hospitalization: Laboratory Results WBC 2.9 th/mm3 (4.0-11.0) L 11/01/17 04:55 RBC 4.60 mil/mm3 (4.50-5.90) 11/01/17 04:55 Hgb 13.2 gm/dL (13.0-17.0) 11/01/17 04:55 Hct 40.2 % (39.0-51.0) 11/01/17 04:55 MCV 87.4 fL (80.0-100.0) 11/01/17 04:55 MCH 28.7 pg (27.0-34.0) 11/01/17 04:55 MCHC 32.8 % (32.0-36.0) 11/01/17 04:55 RDW 13.8 % (11.6-17.2) 11/01/17 04:55 Plt Count 176 th/mm3 (150-450) 11/01/17 04:55 MPV 7.6 fL (7.0-11.0) 11/01/17 04:55 Neut % (Auto) 50.5 % (16.0-70.0) 10/31/17 03:32 Lymph % (Auto) 29.7 % (9.0-44.0) 10/31/17 03:32 [place] % (Auto) 13.2 % (0.0-8.0) H 10/31/17 03:32 Eos % (Auto) 5.6 % (0.0-4.0) H 10/31/17 03:32 Baso % (Auto) 1.0 % (0.0-2.0) 10/31/17 03:32 Neut # (Auto) 1.9 th/mm3 (1.8-7.7) 10/31/17 03:32 Lymph # (Auto) 1.1 th/mm3 (1.0-4.8) 10/31/17 03:32 [place] # (Auto) 0.5 th/mm3 (0.0-0.9) 10/31/17 03:32 Eos # (Auto) 0.2 th/mm3 (0.0-0.4) 10/31/17 03:32 Baso # (Auto) 0.0 th/mm3 (0.0-0.2) 10/31/17 03:32 WBC Differential . 10/31/17 03:32 Differential Comment Auto diff final 10/31/17 03:32 PT 12.1 sec (9.8-11.6) H 10/30/17 22:06 INR 1.2 Ratio 10/30/17 22:06 APTT 31.3 sec (24.3-30.1) H D 11/01/17 04:15 Fibrinogen 249 mg/dL (227-377) 10/30/17 22:06 Sodium 143 meq/L (136-145) 10/31/17 03:32 Potassium 3.6 meq/L (3.5-5.1) 10/31/17 03:32 Chloride 103 meq/L (98-107) 10/31/17 03:32 Carbon Dioxide 31.2 meq/L (21.0-32.0) 10/31/17 03:32 Anion Gap 9 meq/L (5-15) 10/31/17 03:32 BUN 11 mg/dL (7-18) 10/31/17 03:32 Creatinine 1.17 mg/dL (0.60-1.30) 10/31/17 03:32 Estimated GFR 77 mL/min (>89) L 10/31/17 03:32 Random Glucose 108 mg/dL (74-106) H 10/31/17 03:32 Calcium 9.0 mg/dL (8.5-10.1) 10/31/17 03:32 Total Bilirubin 0.5 mg/dL (0.2-1.0) 10/31/17 03:32 AST 9 U/L (15-37) L 10/31/17 03:32 ALT 15 U/L (12-78) 10/31/17 03:32 Alkaline Phosphatase 49 U/L (45-117) 10/31/17 03:32 Troponin I Less than 0.02 ng/mL (0.02-0.05) L 10/30/17 20:24 Total Protein 7.3 g/dL (6.4-8.2) 10/31/17 03:32 Albumin 3.1 g/dL (3.4-5.0) L 10/31/17 03:32 TSH 1.700 uIU/mL (0.358-3.740) 10/30/17 14:00 Impressions Venous Doppler Study 10/30/17 16:03 CONCLUSION: 1. Extensive DVT. Chest CTA 10/30/17 17:05 CONCLUSION: 1. Pulmonary embolus right lower lobe. ECHO 2D Limited 11/01/2017 1. CONCLUSIONS The left ventricular systolic function is normal with an estimated ejection fraction in the range of 60-65%. Normal left ventricular size. Wall thickness is normal. No regional wall motion abnormalities are present. Administered Medications Enoxaparin Sodium (Lovenox Inj) 80 mg SQ Q12HR [facility] Last Admin: 11/02/17 09:45 Dose: 80 mg Admin: 11/01/17 21:03 Dose: 80 mg Admin: 11/01/17 08:29 Dose: 80 mg Admin: 10/31/17 20:45 Dose: 80 mg Admin: 10/31/17 08:56 Dose: 80 mg Famotidine (Pepcid) 20 mg PO BID [facility] Last Admin: 11/01/17 21:03 Dose: 20 mg Admin: 11/01/17 08:29 Dose: 20 mg Admin: 10/31/17 20:45 Dose: 20 mg Admin: 10/31/17 11:10 Dose: 20 mg Discontinued Medications Heparin Sodium (Porcine) (Heparin Inj) 7,000 units 80 units/kg (7000 units) IV.PUSH NOW STA Stop: 10/30/17 18:10 Last Admin: 10/30/17 18:28 Dose: 7,000 units Sodium Chloride (Ns Inj) 1,000 mls @ 0 mls/hr IV.SIG BOLUS [facility] Last Infusion: 10/30/17 18:18 Dose: 0 mls/hr Admin: 10/30/17 14:11 Dose: 999 mls/hr Heparin Sodium/Dextrose (Heparin/D5w 25,000 U/250 Ml) 25,000 unit in 250 mls @ 0 mls/hr IV.CONT TITRATE PRN; Protocol PRN Reason: Per Protocol Stop: 10/31/17 10:00 Last Titration: 10/31/17 10:03 Dose: 0 units/hr, 0 mls/hr Titration: 10/31/17 04:50 Dose: 1,200 units/hr, 12 mls/hr Titration: 10/31/17 00:37 Dose: 0 units/hr, 0 mls/hr Titration: 10/30/17 23:30 Dose: 0 units/hr, 0 mls/hr Admin: 10/30/17 18:34 Dose: 1,600 units/hr, 16 mls/hr Lorazepam (Ativan) 0.5 mg PO ONCE ONE Stop: 10/31/17 16:07 Last Admin: 10/31/17 17:53 Dose: 0.5 mg - Impressions ITS Impressions Venous Doppler Study 10/30/17 16:03 CONCLUSION: 1. Extensive DVT. Chest CTA 10/30/17 17:05 CONCLUSION: 1. Pulmonary embolus right lower lobe. Discharge Plan - Discharge Disposition Patient Disposition: 01 Discharge Home - Discharge Condition Condition: Stable - Discharge Order Discharge Orders: Discharge Order (Routine); Ordered 11/02/17 Ordered By: Robert Pop III - Discharge Details Anticipated Discharge Date: 11/02/17 Discharge Comment: Dependent on getting Blue card for anticoagulation medication - Physicians Team Primary Care Provider: Francis Ivory Attending Provider: Dianne Chavarria
[2017-11-02 21:03] VITALS: PULSE 80
[2017-11-04 14:32] LABS: Protein C Antigen 111 % (70-150); Protein C Functional 98 % (70 - 150); Protein S Antigen Free 93 % (65 - 160)
== END 2017-11-02 18:15 | disposition home or self-care (01) ==
LOC: NEPE 12:29 → NEDA 18:32 → HCPC 22:27
PROVIDERS: ADMIT Family Medicine; ATTEND Family Medicine